=== PATIENT | male | born 1990 | race Caucasian/White ===

== ENCOUNTER 2016-04-20 17:16 | Emergency (ER) | payer BC ==
--- NOTE | 2016-04-20 17:47 | UC ---
Abdominal Pain Male HPI - HPI Summary HPI Summary: The patient comes in today for: 1. Abdominal pain: Onset: Yesterday at 5 AM he started vomiting. He stated that he vomited about 5 times yesterday. And he only vomited once today. His abdominal pain was noticed this AM which he stated was an episodic crampy pain initially felt to be 8/10. He had a bowel movement around 3 PM and his episodic crampy pain dropped down to a 5/10. He is having crampy pain at this time. Palliative/provocative: Bowel movement makes it better. Quality: Cramping. Region: Bilaterally across from the navel. Severity: 5 /10 Time: Comes and goes. Associated symptoms: Fever: None documented. Diarrhea: None at this time. Vomiting: None since this morning. He states that he take Suboxone (by Catrachita Tabor at [facility]). He states that he has been free from heroin for about 2.5 years. * - History of Current Complaint Stated Complaint: ABDOMINAL PAIN Time Seen by Provider: 04/20/16 17:40 Hx Obtained From: Patient - Allergies/Home Medications Allergies/Adverse Reactions: Allergies Allergy/AdvReac Type Severity Reaction Status Date / Time Bee Venom Allergy Swelling Verified 04/20/16 17:41 PMH/Surg Hx/FS Hx/Imm Hx Previously Healthy: No - ADHD. on Suboxone for Heroin use. Endocrine History Of: Denies: Diabetes, Thyroid Disease, Hyperthyroidism, Hypothyroidism, Dyslipidemia Cardiovascular History Of: Denies: Cardiac Disorders, Hypertension, Pacemaker/ICD, Myocardial Infarction , Congestive Heart Failure, Atrial Fibrillation, Deep Vein Thrombosis, Bleeding Disorders Respiratory History Of: Reports: Asthma - He will use albuterol inhaler as needed (exercise induced). Denies: COPD, Bronchitis, Pneumonia, Pulmonary Embolism GI/ History Of: Denies: Gastroesophageal Reflux, Ulcer, Gastrointestinal Bleed, Gall Bladder Disease, Kidney Stones, Diverticulitis, Renal Disease, Urosepsis Neurological History Of: Denies: TIA, CVA, Dementia, Seizures, Migraine - He has not had a history of headaches before. Psychological History Of: Reports: Anxiety, Depression Denies: Bipolar Disorder, Schizophrenia, Post Traumatic Stress Disorder Cancer History Of: Denies: Lung Cancer, Colorectal Cancer, Breast Cancer, Prostate Cancer, Cervical Cancer Other History Of: Negative For: HIV, Hepatitis B, Hepatitis C, Anticoagulant Therapy - Surgical History Surgical History: None - Family History Known Family History: Positive: Cardiac Disease, Respiratory Disease, Other - migraine Negative: Hypertension, Seizure Disorder - Social History Occupation: Student Alcohol Use: None Alcohol Amount: "none in 5 years" Substance Use Type: Marijuana Substance Use Comment - Amount & Last Used: marijuana 1-4 times daily/last heroin 2014- on suboxone Smoking Status (MU): Heavy Every Day Tobacco Smoker Type: Cigarettes Amount Used/How Often: 3/4 PPD Length of Time of Smoking/Using Tobacco: 3 Years Have You Smoked in the Last Year: Yes Household Exposure Type: Cigarettes Review of Systems Constitutional: Negative Skin: Negative Eyes: Negative ENT: Negative Respiratory: Negative Cardiovascular: Negative Gastrointestinal: Abdominal Pain Genitourinary: Negative All Other Systems Reviewed And Are Negative: Yes Physical Exam Triage Information Reviewed: Yes Appearance: Well-Appearing, No Pain Distress, Well-Nourished, Thin, Other: - He was difficult to assess because he would switch the terms of his symptoms i.e. stating that he had abdominal pain at one point, and the denying it stating he only had soreness. Eyes: Positive: Conjunctiva Clear. Negative: Discharge ENT: Positive: Hearing grossly normal. Negative: Pharyngeal erythema, Nasal congestion, Nasal drainage, TM bulging, TM dull, TM red, Tonsillar swelling, Tonsillar exudate Dental: Negative: Gross Decay/Caries @, Dental Fracture @ Neck: Positive: Supple, Nontender, No Lymphadenopathy. Negative: Nuchal Rigidity Respiratory: Positive: Chest non-tender, Lungs clear, No respiratory distress, No accessory muscle use. Negative: Crackles, Wheezing Cardiovascular: Positive: RRR, No Murmur Abdomen Description: Positive: Nontender, No Organomegaly, Soft. Negative: Distended, Guarding Musculoskeletal: Positive: Strength Intact, ROM Intact Neurological: Positive: Alert, Muscle Tone Normal Psychological: Positive: Age Appropriate Behavior, Consolable Skin: Negative: rashes, breakdown Abd Pain Male Course/Dx - Course Course Of Treatment: Patient states that he wants a school note. And medicine for occasional cramping. He states he will not be going to the ER for his abdominal soreness. - Differential Dx/Clinical Impression Provider Diagnoses: GAstroenteritis. abdominal pain. Discharge - Discharge Plan Condition: Stable Disposition: HOME Patient Education Materials: Abdominal Pain (ED) Forms: *School Release Referrals: Remington Forte [Primary Care Provider] - 3 Days (Please see your primary care provider in about witnin a week to see how well you are doing. If you get worse, please be seen sooner.)
[2016-04-20 17:53] VITALS: BP 109/82
== END 2016-04-20 18:35 | disposition home or self-care (01) ==
LOC: UCCORT 17:16
DX: R10.30 Lower abdominal pain, unspecified (principal); K52.9 Noninfective gastroenteritis and colitis, unspecified; F12.90 Cannabis use, unspecified, uncomplicated; F17.210 Nicotine dependence, cigarettes, uncomplicated
CPT/HCPCS: 99212; G0463

== ENCOUNTER 2016-05-22 15:31 | Emergency (ER) | payer BC ==
[2016-05-22 16:02] VITALS: BP 104/67
--- NOTE | 2016-05-22 16:12 | UC ---
Skin Complaint HPI - History of Current Complaint Chief Complaint: UCSkin Time Seen by Provider: 05/22/16 15:39 Stated Complaint: TICK Hx Obtained From: Patient Onset/Duration: Sudden Onset - tick probably on since last night, Lasting Hours - 1 tried to take tick out and dug at it with a knife. Skin Exposure Onset/Duration: Days Ago - 1 Onset Severity: Moderate Current Severity: Moderate Location: Other - right upper abdomen Aggravating: Nothing Alleviating: Nothing Associated Signs & Symptoms: Positive: Negative Related History: Insect Bite/Sting - tick bite. - Allergy/Home Medications Allergies/Adverse Reactions: Allergies Allergy/AdvReac Type Severity Reaction Status Date / Time Bee Venom Allergy Swelling Verified 05/22/16 16:02 Review of Systems All Other Systems Reviewed And Are Negative: Yes PMH/Surg Hx/FS Hx/Imm Hx Endocrine History Of: Denies: Diabetes, Thyroid Disease, Hyperthyroidism, Hypothyroidism, Dyslipidemia Cardiovascular History Of: Denies: Cardiac Disorders, Hypertension, Pacemaker/ICD, Myocardial Infarction , Congestive Heart Failure, Atrial Fibrillation, Deep Vein Thrombosis, Bleeding Disorders Respiratory History Of: Reports: Asthma - He will use albuterol inhaler as needed (exercise induced). Denies: COPD, Bronchitis, Pneumonia, Pulmonary Embolism GI/ History Of: Denies: Gastroesophageal Reflux, Ulcer, Gastrointestinal Bleed, Gall Bladder Disease, Kidney Stones, Diverticulitis, Renal Disease, Urosepsis Neurological History Of: Denies: TIA, CVA, Dementia, Seizures, Migraine - He has not had a history of headaches before. Psychological History Of: Reports: Depression Denies: Anxiety, Bipolar Disorder, Schizophrenia, Post Traumatic Stress Disorder Cancer History Of: Denies: Lung Cancer, Colorectal Cancer, Breast Cancer, Prostate Cancer, Cervical Cancer Other History Of: Negative For: HIV, Hepatitis B, Hepatitis C, Anticoagulant Therapy - Surgical History Surgical History: None Surgery Procedure, Year, and Place: wisdom teeth - Family History Known Family History: Positive: Diabetes, Respiratory Disease, Other - migraine Negative: Cardiac Disease, Hypertension, Seizure Disorder - Social History Occupation: Student Lives: Alone Alcohol Use: Rare Alcohol Amount: "none in 5 years" Substance Use Type: None, Other Substance Use Comment - Amount & Last Used: marijuana 1-4 times daily/last heroin 2014- on suboxone Smoking Status (MU): Heavy Every Day Tobacco Smoker Type: Cigarettes Amount Used/How Often: 3/4 PPD Length of Time of Smoking/Using Tobacco: 3 Years Have You Smoked in the Last Year: Yes Household Exposure Type: Cigarettes - Immunization History Most Recent Influenza Vaccination: none Physical Exam Triage Information Reviewed: Yes Appearance: Well-Appearing, No Pain Distress, Well-Nourished Vital Signs: Initial Vital Signs Temp 99.8 F 05/22/16 15:53 Pulse 87 05/22/16 15:53 Resp 18 05/22/16 15:53 BP 104/67 05/22/16 15:53 Pulse Ox 98 05/22/16 15:53 Vital Signs Reviewed: Yes Eyes: Positive: Conjunctiva Clear Neck exam: Normal Respiratory Exam: Normal Cardiovascular Exam: Normal Abdomen Description: Positive: Nontender, No Organomegaly, Soft Musculoskeletal Exam: Normal Neurological Exam: Normal Psychological: Positive: Other: - Anxious Skin: Positive: Other - tick bite with normal redness right upper abdomen Course/Dx - Differential Diagnoses - Skin Complaint Differential Diagnoses: Cellulitis, Tick Born Illness - Diagnoses Provider Diagnoses: Tick bite abdomen Discharge - Discharge Plan Condition: Stable Disposition: HOME Patient Education Materials: Tick Bite (ED) Additional Instructions: OToms Tick twister
== END 2016-05-22 16:29 | disposition home or self-care (01) ==
LOC: UCCORT 15:31
DX: S30.861A Insect bite (nonvenomous) of abdominal wall, initial encounter (principal); W57.XXXA Bitten or stung by nonvenomous insect and other nonvenomous arthropods, initial encounter; Y93.9 Activity, unspecified; Y92.9 Unspecified place or not applicable; J45.909 Unspecified asthma, uncomplicated; F32.9 Major depressive disorder, single episode, unspecified; F12.90 Cannabis use, unspecified, uncomplicated; F17.210 Nicotine dependence, cigarettes, uncomplicated
CPT/HCPCS: 99211; G0463

== ENCOUNTER 2016-11-30 16:53 | Emergency (ER) | payer BC ==
[2016-11-30 17:56] VITALS: BP 121/76
--- NOTE | 2016-11-30 19:05 | RAD ---
Indication: Constipation. Flat plate of the abdomen demonstrates stool throughout the colon. No dilated loops of bowel are noted. The psoas margins are unremarkable. IMPRESSION: COLON IS FILLED WITH STOOL. NO FREE AIR OR OBSTRUCTION IS NOTED.
--- NOTE | 2016-11-30 19:27 | UC ---
UC General HPI - HPI Summary HPI Summary: EARLY THIS MORNING HAD NAUSEA AND VOMITING. VOMITING RESOLVED. HAS HAD LOWER ABDOMINAL CRAMPING. HAS BEEN 2-3 DAYS SINCE BOWEL MOVEMENT. HISTORY OF CONSTIPATION IN THE PAST. NEEDS NOTE FOR SCHOOL FOR TODAY AND TOMORROW. - History of Current Complaint Chief Complaint: UCAbdominalPain Stated Complaint: ABDOMINAL PAIN/CONSTIPATION Time Seen by Provider: 11/30/16 18:17 Hx Obtained From: Patient Onset/Duration: Gradual Onset, Lasting Days Timing: Intermittent Episodes Lasting: Onset Severity: Moderate Current Severity: Mild Associated Signs & Symptoms: Positive: Abdominal Pain. Negative: Confusion, Cough, Edema, Fever, Headache, Recent Medication Changes, Syncope, SOB - Allergy/Home Medications Allergies/Adverse Reactions: Allergies Allergy/AdvReac Type Severity Reaction Status Date / Time Bee Venom Allergy Swelling Verified 11/30/16 17:45 Home Medications: Home Medications Divalproex Sodium [Depakote] 1,000 mg PO DAILY 11/30/16 [History Confirmed 11/30] PMH/Surg Hx/FS Hx/Imm Hx Previously Healthy: Yes Other History Of: Negative For: HIV, Hepatitis B, Hepatitis C, Anticoagulant Therapy - Surgical History Surgical History: None Surgery Procedure, Year, and Place: wisdom teeth - Family History Known Family History: Positive: Diabetes, Respiratory Disease, Other - migraine Negative: Cardiac Disease, Hypertension, Seizure Disorder - Social History Occupation: Student Lives: Dormitory/Roommates Alcohol Use: None Alcohol Amount: "none in 5 years" Substance Use Type: None Substance Use Comment - Amount & Last Used: last heroin 2013- on suboxone Smoking Status (MU): Light Every Day Tobacco Smoker Type: Cigarettes Amount Used/How Often: 5 CIGS PER DAY Length of Time of Smoking/Using Tobacco: 3 Years Have You Smoked in the Last Year: Yes Household Exposure Type: Cigarettes Cessation Counseling: Patient Advised to Stop - Immunization History Most Recent Influenza Vaccination: none Review of Systems Constitutional: Fever Skin: Negative Eyes: Negative ENT: Negative Respiratory: Negative Cardiovascular: Negative Gastrointestinal: Vomiting, Other - CONSTIPATION Genitourinary: Negative Motor: Negative Neurovascular: Negative Musculoskeletal: Negative Neurological: Negative Psychological: Negative Is Patient Immunocompromised?: No All Other Systems Reviewed And Are Negative: Yes Physical Exam Triage Information Reviewed: Yes Appearance: Well-Appearing, No Pain Distress, Well-Nourished Vital Signs: Initial Vital Signs Temp 98.4 F 11/30/16 17:48 Pulse 90 11/30/16 17:48 Resp 18 11/30/16 17:48 BP 121/76 11/30/16 17:48 Pulse Ox 99 11/30/16 17:48 Vital Signs Reviewed: Yes Eye Exam: Normal ENT Exam: Normal ENT: Positive: Normal ENT inspection, Hearing grossly normal, TMs normal Dental Exam: Normal Neck exam: Normal Neck: Positive: Supple, Nontender, No Lymphadenopathy Respiratory Exam: Normal Respiratory: Positive: Chest non-tender, Lungs clear, Normal breath sounds, No respiratory distress, No accessory muscle use Cardiovascular Exam: Normal Cardiovascular: Positive: RRR, No Murmur, Pulses Normal, Brisk Capillary Refill Abdomen Description: Positive: Nontender, Hepatomegaly, Other: - PRESENTLY NO ABDOMINAL TENDERNESS. Negative: No Organomegaly, Soft, McBurney's Point Tenderness, Splenomegaly Musculoskeletal Exam: Normal Musculoskeletal: Positive: Strength Intact, ROM Intact Neurological Exam: Normal Psychological Exam: Normal Skin Exam: Normal Course/Dx - Differential Dx - Multi-Symptom Differential Diagnoses: Metabolic Abnormality, Urinary Tract Infection Provider Diagnoses: CONSTIPATION Discharge - Discharge Plan Condition: Stable Disposition: HOME Prescriptions: Magnesium CITRATE* [Citrate of Magnesia*] 150 ml PO ONCE #1 btl Patient Education Materials: Constipation (ED), High Fiber Diet (ED) Forms: *School Release Referrals: Remington Forte [Primary Care Provider] -
== END 2016-11-30 19:25 | disposition home or self-care (01) ==
LOC: UCCORT 16:53
DX: K59.00 Constipation, unspecified (principal); F17.210 Nicotine dependence, cigarettes, uncomplicated; Z71.6 Tobacco abuse counseling; Z91.030 Bee allergy status
CPT/HCPCS: 74020; 81003; 99212; G0463

== ENCOUNTER 2017-05-04 14:31 | Emergency (ER) | payer BC ==
[2017-05-04 16:10] VITALS: BP 119/78
--- NOTE | 2017-05-04 17:00 | UC ---
Head Injury HPI - HPI Summary HPI Summary: 26 year old male with head injury. he hit his head yesterday afternoon. He denies blacking out. He says he slipped when outside with the dog. He was unsteady, dizzy after he hit his head and slept all day and night. He missed classes last evening and today. He needs a school note. Has no symptoms at this time. Feels back to normal. No concerns with confusion . No LOC and no seizure. Just needs note for school [ End ] - History Of Current Complaint Chief Complaint: UCHeadInjury Stated Complaint: MIGRAINE Time Seen by Provider: 05/04/17 16:37 Hx Obtained From: Patient Onset/Duration: Sudden Onset Severity Currently: Moderate Severity Initially: Mild Pain Intensity: 0 Pain Scale Used: 0-10 Numeric - 0 Aggravating Factor(s): Nothing Alleviating Factor(s): Nothing - Risk Factors SDH Risk Factor: Negative, Male, Recent Trauma - Allergies/Home Medications Allergies/Adverse Reactions: Allergies Allergy/AdvReac Type Severity Reaction Status Date / Time bee venom protein (honey bee) Allergy Swelling Verified 05/04/17 16:10 PMH/Surg Hx/FS Hx/Imm Hx Previously Healthy: Yes Psychological History: Other - add Other Psychological History: add Other History Of: Negative For: HIV, Hepatitis B, Hepatitis C, Anticoagulant Therapy - Surgical History Surgical History: Yes Surgery Procedure, Year, and Place: wisdom teeth - Family History Known Family History: Positive: Diabetes, Respiratory Disease, Other - migraine Negative: Cardiac Disease, Hypertension, Seizure Disorder - Social History Occupation: 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, 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 Alcohol Use: None Alcohol Amount: "none in 5 years" Substance Use Type: Prescribed Substance Use Comment - Amount & Last Used: last heroin 2013- on suboxone Smoking Status (MU): Light Every Day Tobacco Smoker Type: Cigarettes Amount Used/How Often: 5 CIGS PER DAY Length of Time of Smoking/Using Tobacco: 3 Years Have You Smoked in the Last Year: Yes Household Exposure Type: Cigarettes - Immunization History Most Recent Influenza Vaccination: none Review of Systems Neurological: Headache Is Patient Immunocompromised?: No All Other Systems Reviewed And Are Negative: Yes Physical Exam Triage Information Reviewed: Yes Appearance: Well-Appearing, No Pain Distress, Well-Nourished Vital Signs: Initial Vital Signs Temp 98.6 F 05/04/17 16:05 Pulse 76 05/04/17 16:05 Resp 14 05/04/17 16:05 BP 119/78 05/04/17 16:05 Pulse Ox 99 05/04/17 16:05 Vital Signs Reviewed: Yes Eye Exam: Normal ENT Exam: Normal Dental Exam: Normal Neck exam: Normal Neck: Positive: 1 Respiratory Exam: Normal Cardiovascular Exam: Normal Musculoskeletal Exam: Normal Neurological Exam: Normal Psychological Exam: Normal Skin Exam: Normal Skin: Positive: Other - right front aspect of scalp with small abrasion. no significant swelling. no drainage. no bruising. Head Injury Course/Dx - Course Course Of Treatment: headache resolved. no concussive sx. essentuially here only for school note. no neuro deficits. - Differential Dx/Diagnosis Differential Diagnosis/HQI/PQRI: Contusion Provider Diagnoses: Scalp contusion / headache Discharge - Sign-Out/Discharge Documenting (check all that apply): Discharge - Discharge Plan Condition: Good Disposition: HOME Patient Education Materials: Acute Headache (ED), Scalp Contusion in Adults (ED ) Forms: *School Release Referrals: Remington Forte [Primary Care Provider] - 4 Days - Billing Disposition and Condition Condition: GOOD Disposition: HOME
== END 2017-05-04 16:48 | disposition home or self-care (01) ==
LOC: UCCORT 14:31
DX: R51 Headache (principal); F17.210 Nicotine dependence, cigarettes, uncomplicated; S00.03XA Contusion of scalp, initial encounter; W01.10XA Fall on same level from slipping, tripping and stumbling with subsequent striking against unspecified object, initial encounter; Y93.K1 Activity, walking an animal; Y92.9 Unspecified place or not applicable
CPT/HCPCS: 99211; G0463

== ENCOUNTER 2018-04-25 13:17 | Emergency (ER) | payer BC ==
--- OUTSIDE RECORDS SUMMARY | 2018-04-25 13:33 | XMS REPORT | Continuity of Care Document ---
:1990 External Reference #:[id number] Author Name Catrachita Gan MD Address [address] [place] [address] Care Team Providers Name Role Phone Catrachita Gan MD Care Team Information Shactor Helper Unavailable Payers Date Identification Numbers Payment Provider Subscriber Effective: 2014 Policy Number: [id number] [facility] Commercial Meena Ansari PayID: [id number] [address] [address] [place] [address] Advance Directives Description No Information Available Problems Date Description Provider Status Onset: 10/27/2014 Generalized anxiety disorder Catrachita Gan MD Active Onset: 10/27/2014 Opioid dependence in remission Catrachita Gan MD Active Family History Date Family Member(s) Observation Comments Father Alcoholism Social History Type Date Description Comments Sex Unknown 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 Tobacco Use Start: Unknown Patient is a current smoker, smokes every day Allergies, Adverse Reactions, Alerts Description No Known Drug Allergies Medications Medication Date Status Form Strength Qnty SIG Indications Ordering Provider Sublocade 04/13/ Active Soln 100mg/0.5 .500m inject F11.288 [facility] l subcutaneous Catrachita Syringe MD Yara Peg 3350 12/30/ Active Powder 714gm 1 capful qd F31.9 [facility]2016 Catrachita Livingston MD Docusate Sodium 12/30/ Active Capsules 100mg 30cap 1 by mouth F31.9 Elvia2016 s every day Catrachita Livingston MD Narcan 09/13/ Active Liquid 4mg/0.1ML 2unit as needed F31.9 Elvia2016 s intranasal Catrachita for emergency MD Yara overdose only Vitamin D 04/29/ Active Capsules 2000Unit 1 by mouth 268.9 Elvia, 2014 every day Catrachita Livingston MD Divalproex / Active Tablets 500mg 2 qd F31.9 Unknown Sodium ER 0000 ER 24HR Quetiapine / Active Tablets 100mg take one F31.9 Unknown Fumarate 0000 tablet by mouth at bedtime Puryear / Active Capsules 300mg F31.9 Unknown Carbonate 0000 Sublocade 02/20/ Hx Soln 300mg/1.5 1.500 300 mg sc F11.288 Elvia, 2018 - Prefill ML ml every mos Catrachita 04/13/ Syringe MD Yara 2018 Buprenorphine 10/23/ Hx Film 8-2mg 7unit 1 sl every F11.288 Elvia, Hydrochloride/N 2017 holli: Catrachita aloxone 10/23/ [id number] M,MD Hydrochloride 2017 Suboxone 10/23/ Hx Film 8-2mg 8unit 1 sl every F11.288 Elvia, 2017 holli: Catrachita 03/16/ [id number] M,MD 2018 School Note 05/19/ Hx please excuse F31.9 Elvia, 2017 - from class Catrachita 06/06/ 4/5 d/t MD Yara 2017 medical reasons School Note 04/07/ Hx pt was seen F31.9 Elvia, 2017 - at the [facility] 05/19/ alexis Livingston MD 2018 center today Amphetamine-Dex 04/07/ Hx Tablets 20mg 1 by mouth F90.0 Elvia, troamphetamine 2017 - bid m-fr per Catrachita 06/06/ psyche MD Yara 2017 School Note 03/30/ Hx please excuse Elvia, 2017 - from class Catrachita 04/07/ today d/t MD Yara 2017 medical reasons School Note 12/23/ Hx please excuse Elvia, 2016 - from class Catrachita 03/10/ 11/8 d/t MD Yara 2017 medical reasons Amphetamine-Dex 10/04/ Hx Tablets 10mg per psyche F90.0 Elvia, troamphetamine 2017 - prn use Catrachita 04/07/ MD Yara 2017 Suboxone 09/13/ Hx Film 4-1mg 30uni 1 sl every F31.9 Elvia, 2016 - day Catrachita 10/23/ holli:[id number] MD Yara 2017 Divalproex 09/13/ Hx Tablets 500mg 2 qd F40.11 [place], Sodium ER 2017 - ER 24HR Catrachita 06/06/ Yara, 2017 Escitalopram 04/29/ Hx Tablets 10mg 1 by mouth F41.1 Elvia, Oxalate 2016 - every day Catrachita 07/13/ MD Yara 2017 School Note 04/08/ Hx plz excuse F31.9 Elvia, 2016 - from class Catrachita 04/29/ and MD Yara 04/07 Suboxone 01/21/ Hx Film 8-2mg 30uni 1 sl every F31.9 Elvia, 2015 - holli: Catrachita 09/13/ [id number] MD Yara 2016 School Note 01/21/ Hx pt had F31.9 Elvia, 2015 - appt today Catrachita 04/08/ MD Yara 2016 School Note 01/20/ Hx pt missed Elvia, 2015 - class on 01/13 Catrachita 01/21/ d/t medical MD Yara 2016 reasons Suboxone 12/20/ Hx Film 4-1mg 30uni 1 sl qd F31.9 Elvia, 2015 - ts holli:[id number] Catrachita 01/21/ MD Yara 2016 Clonidine HCL 07/26/ Hx Tablets 0.1mg 30tab 1 by mouth F31.9 Elvia, 2016 - s three a day Catrachita 11/23/ as needed MD Yara 2016 anxiety, tremors Hydroxyzine HCL 07/26/ Hx Tablets 25mg 30tab 1 by mouth F31.9 Elvia, 2016 - s three times a Catrachita 11/23/ day as needed MD Yara 2015 anxiety/sleep Adderall XR 06/28/ Hx Caps ER 10mg 1 po qd F90.0 Elvia, 2015 - 24HR Catrachita 09/13/ MD Yara 2016 School Note 05/19/ Hx plz excuse PT Elvia, 2015 - from class on Catrachita 06/28/ 05/13 for MD Yara 2015 medical reasons Divalproex 02/27/ Hx Tablets 500mg F41.1 Elvia, Sodium ER 2016 - ER 24HR Catrachita 04/29/ MD Yara 2017 Escitalopram 10/27/ Hx Tablets 20mg 90tab 1 by mouth F41.1 Elvia, Oxalate 2014 - s every day Catrachita MD Yara 2016 Suboxone 08/21/ Hx Film 2-0.5mg 30uni 1 sl every F31.9 Elvia, 2014 - holli Catrachita 12/20/ [id number] MD Yara 2015 Rehab Note 08/04/ 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 Catrachita MD Yara 2014 Suboxone 01/06/ Hx Film 8-2mg 10uni 1 sl every 304.03 Elvia, 2013 - day Catrachita MD Yara 2014 School Note 01/06/ Hx pl excuse 304.03 Elvia, 2013 - from class Catrachita MD Yara 2014 School Note 12/16/ Hx pl excuse 304.03 Elvia 2013 - from class Catrachita 12/09, 12/10, MD Yara 12/16 Suboxone 12/16/ Hx Film 4-1mg 32uni 1 sl bid 304.03 Elvia, 2013 - ts Catrachita 01/06/ MD Yara 2013 Lexapro 12/09/ Hx Tablets 10mg 90tab 1 by mouth 300.02 Elvia, 2013 - s every day Catrachita MD Yara 2014 Vistaril 12/09/ Hx Capsules 25mg 30cap 1 qd prn Elvia, 2013 - s Anxiety Catrachita MD Yara 2013 Suboxone 12/09/ Hx Film 8-2mg 15uni 1 sl twice a 304.03 Elvia, 2013 - day Catrachita 12/16/ MD Yara 2013 School Note Hx patient was Elvia 2013 - seen in our [facility] 12/16/ office todayYara MD 2013 PT has been sick for the past 2 wks.from 11/25/13 to 12/09 Immunizations Description No Information Available Vital Signs Date Vital Result Comment 04/13/2018 3:30pm Weight 129.00 lb Heart Rate 72 /min BP Systolic 110 mmHg BP Diastolic 52 mmHg Height 69 inches 5'9" BMI (Body Mass Index) 19.0 kg/m2 03/16/2018 2:32pm Weight 131.00 lb Heart Rate 88 /min BP Systolic 110 mmHg BP Diastolic 56 mmHg Height 69 inches 5'9" BMI (Body Mass Index) 19.3 kg/m2 01/26/2018 3:41pm Weight 140.00 lb Heart Rate 68 /min BP Systolic 116 mmHg BP Diastolic 60 mmHg Height 69 inches 5'9" BMI (Body Mass Index) 20.7 kg/m2 11/24/2017 2:59pm Weight 142.00 lb Heart Rate 76 /min BP Systolic 110 mmHg BP Diastolic 64 mmHg Height 69 inches 5'9" BMI (Body Mass Index) 21.0 kg/m2 10/23/2017 2:48pm Weight 137.00 lb Heart Rate 60 /min BP Systolic 100 mmHg BP Diastolic 60 mmHg Height 69 inches 5'9" BMI (Body Mass Index) 20.2 kg/m2 06/06/2017 3:20pm Weight 135.00 lb Heart Rate 80 /min BP Systolic 108 mmHg BP Diastolic 60 mmHg Height 69 inches 5'9" BMI (Body Mass Index) 19.9 kg/m2 04/07/2017 3:14pm Weight 138.00 lb Heart Rate 96 /min BP Systolic 118 mmHg BP Diastolic 60 mmHg Height 69 inches 5'9" BMI (Body Mass Index) 20.4 kg/m2 03/10/2017 4:04pm Weight 135.00 lb Heart Rate 84 /min BP Systolic 120 mmHg BP Diastolic 70 mmHg Height 69 inches 5'9" BMI (Body Mass Index) 19.9 kg/m2 12/30/2016 3:37pm Weight 136.00 lb Heart Rate 88 /min BP Systolic 110 mmHg BP Diastolic 72 mmHg Height 69 inches 5'9" BMI (Body Mass Index) 20.1 kg/m2 11/11/2016 3:47pm Weight 139.00 lb Heart Rate 76 /min BP Systolic 112 mmHg BP Diastolic 62 mmHg Height 69 inches 5'9" BMI (Body Mass Index) 20.5 kg/m2 10/28/2016 3:04pm Weight 137.00 lb Heart Rate 76 /min BP Systolic 108 mmHg BP Diastolic 66 mmHg Height 69 inches 5'9" BMI (Body Mass Index) 20.2 kg/m2 10/04/2016 3:20pm Weight 141.00 lb Heart Rate 76 /min BP Systolic 120 mmHg BP Diastolic 60 mmHg Height 69 inches 5'9" BMI (Body Mass Index) 20.8 kg/m2 09/13/2016 1:10pm Weight 140.00 lb Heart Rate 76 /min BP Systolic 120 mmHg BP Diastolic 74 mmHg Height 69 inches 5'9" BMI (Body Mass Index) 20.7 kg/m2 07/13/2016 11:19am Weight 128.00 lb Heart Rate 80 /min BP Systolic 98 mmHg BP Diastolic 62 mmHg Height 69 inches 5'9" BMI (Body Mass Index) 18.9 kg/m2 04/29/2016 3:55pm Weight 136.00 lb Heart Rate 88 /min BP Systolic 112 mmHg BP Diastolic 66 mmHg Height 69 inches 5'9" BMI (Body Mass Index) 20.1 kg/m2 03/02/2016 11:56am Weight 131.00 lb Heart Rate 64 /min BP Systolic 110 mmHg BP Diastolic 56 mmHg Height 69 inches 5'9" BMI (Body Mass Index) 19.3 kg/m2 01/22/2016 3:05pm Weight 133.00 lb Heart Rate 64 /min BP Systolic 104 mmHg BP Diastolic 60 mmHg Height 69 inches 5'9" BMI (Body Mass Index) 19.6 kg/m2 11/24/2015 4:30pm Weight 132.00 lb Heart Rate 72 /min BP Systolic 112 mmHg BP Diastolic 68 mmHg Height 69 inches 5'9" BMI (Body Mass Index) 19.5 kg/m2 09/25/2015 2:49pm Weight 135.00 lb Heart Rate 76 /min BP Systolic 110 mmHg BP Diastolic 64 mmHg Height 69 inches 5'9" BMI (Body Mass Index) 19.9 kg/m2 07/27/2015 2:52pm Weight 131.00 lb Heart Rate 80 /min BP Systolic 116 mmHg BP Diastolic 76 mmHg Height 69 inches 5'9" BMI (Body Mass Index) 19.3 kg/m2 06/29/2015 2:30pm Weight 134.25 lb Heart Rate 59 /min BP Systolic 122 mmHg BP Diastolic 68 mmHg Height 69 inches 5'9" BMI (Body Mass Index) 19.8 kg/m2 04/28/2015 12:58pm Body Temperature 97.0 F Weight 134.00 lb Heart Rate 56 /min BP Systolic 110 mmHg BP Diastolic 72 mmHg Height 69 inches 5'9" BMI (Body Mass Index) 19.8 kg/m2 02/27/2015 11:31am Weight 141.00 lb Heart Rate 141 /min BP Systolic 60 mmHg BP Systolic Recheck 112 mmHg BP Diastolic Recheck 66 mmHg Height 69 inches 5'9" BMI (Body Mass Index) 20.8 kg/m2 12/29/2014 11:15am Weight 151.00 lb Heart Rate 52 /min BP Systolic 100 mmHg BP Diastolic 62 mmHg Height 69 inches 5'9" BMI (Body Mass Index) 22.3 kg/m2 10/27/2014 12:10pm Weight 136.00 lb Heart Rate 64 /min BP Systolic 110 mmHg BP Diastolic 68 mmHg Height 69 inches 5'9" BMI (Body Mass Index) 20.1 kg/m2 09/01/2014 10:57am Weight 137.00 lb Heart Rate 56 /min BP Systolic 9870 mmHg Height 69 inches 5'9" BMI (Body Mass Index) 20.2 kg/m2 06/24/2014 12:01pm Weight 136.00 lb Heart Rate 52 /min BP Systolic 98 mmHg BP Diastolic 62 mmHg Height 69 inches 5'9" BMI (Body Mass Index) 20.1 kg/m2 04/29/2014 11:45am Weight 140.00 lb Heart Rate 76 /min BP Systolic 110 mmHg BP Diastolic 68 mmHg Height 69 inches 5'9" BMI (Body Mass Index) 20.7 kg/m2 03/03/2014 11:51am Weight 145.00 lb Heart Rate 60 /min BP Systolic 106 mmHg BP Diastolic 62 mmHg Height 69 inches 5'9" BMI (Body Mass Index) 21.4 kg/m2 01/06/2014 11:42am Weight 140.00 lb Heart Rate 64 /min BP Systolic 96 mmHg BP Diastolic 62 mmHg Height 69 inches 5'9" BMI (Body Mass Index) 20.7 kg/m2 12/16/2013 1:55pm Weight 140.00 lb Heart Rate 64 /min BP Systolic 104 mmHg BP Diastolic 76 mmHg Height 69 inches 5'9" BMI (Body Mass Index) 20.7 kg/m2 12/09/2013 1:52pm Weight 140.00 lb Heart Rate 68 /min BP Systolic 106 mmHg BP Diastolic 68 mmHg Height 69 inches 5'9" BMI (Body Mass Index) 20.7 kg/m2 Results Test Date Facility Test Result H/L Range Note Drugs of Abuse w/o 01/26/2018 [facility] Amphetamines,Uri NEGATIVE <1000 ng /mL THC-FCMG ne Barbiturates,Urine NEGATIVE <200 ng/mL Benzodiazepines, Urine NEGATIVE <200 ng/mL Bupernorphrine/Norbu,Urine POSITIVE Abnormal <10 ng/mL Cocaine Metabolites,Urine NEGATIVE <300 ng/mL Methadone,Urine NEGATIVE <300 ng/mL Opiates,Urine NEGATIVE <300 ng/mL Oxycodone,Urine NEGATIVE <100 ng/mL Phencyclidine,Urine NEGATIVE <25 ng/mL Drugs Of 11/24/2017 [facility] Amphetamines,Urine NEGATIVE <1000 ng/mL Abuse,Urine-FCMG Barbiturates,Urine NEGATIVE <200 ng/mL Benzodiazepines, Urine NEGATIVE <200 ng/mL Bupernorphrine/Norbu,Urine POSITIVE Abnormal <10 ng/mL Cocaine Metabolites,Urine NEGATIVE <300 ng/mL Methadone,Urine NEGATIVE <300 ng/mL Opiates,Urine NEGATIVE <300 ng/mL Oxycodone,Urine NEGATIVE <100 ng/mL Phencyclidine,Urine NEGATIVE <25 ng/mL Cannabinoids,Urine POSITIVE Abnormal <50 ng/mL Drugs Of 10/23/2017 [facility] Amphetamines,Urine NEGATIVE <1000 ng/mL Abuse,Urine-FCMG Barbiturates,Urine NEGATIVE <200 ng/mL Benzodiazepines, Urine NEGATIVE <200 ng/mL Bupernorphrine/Norbu,Urine NEGATIVE <10 ng/mL Cocaine Metabolites,Urine NEGATIVE <300 ng/mL Methadone,Urine NEGATIVE <300 ng/mL Opiates,Urine POSITIVE Abnormal <300 ng/mL Oxycodone,Urine NEGATIVE <100 ng/mL Phencyclidine,Urine NEGATIVE <25 ng/mL Cannabinoids,Urine POSITIVE Abnormal <50 ng/mL Drugs Of 06/06/2017 [facility] Amphetamines,Urine POSITIVE Abnormal <1000 Abuse,Urine-FCMG ng/mL Barbiturates,Urine NEGATIVE <200 ng/mL Benzodiazepines, Urine POSITIVE Abnormal <200 ng/mL Bupernorphrine/Norbu,Urine POSITIVE Abnormal <10 ng/mL Cocaine Metabolites,Urine POSITIVE Abnormal <300 ng/mL Methadone,Urine NEGATIVE <300 ng/mL Opiates,Urine NEGATIVE <300 ng/mL Oxycodone,Urine NEGATIVE <100 ng/mL Phencyclidine,Urine NEGATIVE <25 ng/mL Cannabinoids,Urine POSITIVE Abnormal <50 ng/mL Drugs Of 04/07/2017 [facility] Amphetamines,Urine NEGATIVE <1000 ng/mL Abuse,Urine-FCMG Barbiturates,Urine NEGATIVE <200 ng/mL Benzodiazepines, Urine NEGATIVE <200 ng/mL Bupernorphrine/Norbu,Urine POSITIVE Abnormal <10 ng/mL Cocaine Metabolites,Urine NEGATIVE <300 ng/mL Methadone,Urine NEGATIVE <300 ng/mL Opiates,Urine NEGATIVE <300 ng/mL Oxycodone,Urine NEGATIVE <100 ng/mL Phencyclidine,Urine NEGATIVE <25 ng/mL Cannabinoids,Urine POSITIVE Abnormal <50 ng/mL Drugs Of 11/11/2016 [facility] Amphetamines,Urine NEGATIVE Negative Abuse,Urine-FCMG Barbiturates,Urine NEGATIVE Negative Benzodiazepines, Urine NEGATIVE Negative Bupernorphrine/Norbu,Urine POSITIVE Abnormal Negative Cocaine Metabolites,Urine NEGATIVE Negative Methadone,Urine NEGATIVE Negative Opiates,Urine NEGATIVE Negative Oxycodone,Urine NEGATIVE Negative Phencyclidine,Urine NEGATIVE Negative Cannabinoids,Urine NEGATIVE Negative Drugs of Abuse w/o 09/13/2016 [facility] Amphetamines,Urine Negative <1000 ng/mL THC-FCMG Barbiturates,Urine Negative <200 ng/mL Benzodiazepines, Urine Negative <200 ng/mL Bupernorphrine/Norbu,Urine Positive Abnormal <10 ng/mL Cocaine Metabolites,Urine Negative <300 ng/mL Methadone,Urine Negative <300 ng/mL Opiates,Urine Negative <300 ng/mL Oxycodone,Urine Negative <100 ng/mL Phencyclidine,Urine Negative <25 ng/mL Laboratory test 09/13/2016 [facility] Bupernorphrine/Norbu Positive Abnormal <10 ng/mL finding Drugs Of 07/13/2016 [facility] Amphetamines,Urine Positive Abnormal <1000 Abuse,Urine-FCM ng/mL G Barbiturates,Urine Negative <200 ng/mL Benzodiazepines, Urine Negative <200 ng/mL Bupernorphrine/Norbu,Urine Positive Abnormal <10 ng/mL Cocaine Metabolites,Urine Negative <300 ng/mL Methadone,Urine Negative <300 ng/mL Opiates,Urine Negative <300 ng/mL Oxycodone,Urine Negative <100 ng/mL Phencyclidine,Urine Negative <25 ng/mL Cannabinoids,Urine Positive Abnormal <50 ng/mL CBC With Auto Diff 03/02/2016 [facility] WBC 5.1 K/uL 4.1-11.0 1 RBC 4.85 M/uL 4.60-6.10 Hemoglobin 14.6 gm/dL 13.5-18.0 Hematocrit 43.6 % 41.0-53.0 MCV 89.9 fL 80.0-97.0 MCH 30.1 pg 27.0-32.0 MCHC 33.4 g/dL 32.0-36.0 RDW 13.0 % 11.5-14.5 PLT Count 131 K/ul Low 140-400 Neutrophil 43.4 % 35.0-75.0 Lymphocyte 39.7 % 16.0-52.0 Monocyte 11.6 % High 2.0-10.0 Eosinophil 4.3 % 0.0-5.0 Basophil 1.0 % 0.0-4.0 Abs Neutrophils 2.2 K/uL 2.1-8.0 Abs Lymphocytes 2.0 K/uL 0.8-5.5 Abs Monocytes 0.6 K/uL 0.1-1.0 Abs Eosinophils 0.2 K/uL 0.0-0.5 Abs Basophils 0.0 K/uL 0.0-0.3 Drugs Of 01/22/2016 [facility] Amphetamines,Urine Negative <1000 ng/mL Abuse,Urine-FCMG Barbiturates,Urine Negative <200 ng/mL Benzodiazepines, Urine Negative <200 ng/mL Bupernorphrine/Norbu,Urine Positive <10 ng/mL Cocaine Metabolites,Urine Negative <300 ng/mL Methadone,Urine Negative <300 ng/mL Opiates,Urine Negative <300 ng/mL Oxycodone,Urine Negative <100 ng/mL Phencyclidine,Urine Negative <25 ng/mL Cannabinoids,Urine Positive <50 ng/mL CBC With Auto Diff 01/22/2016 [facility] WBC 4.4 K/uL 4.1-11.0 RBC 4.95 M/uL 4.60-6.10 Hemoglobin 15.1 gm/dL 13.5-18.0 Hematocrit 45.1 % 41.0-53.0 MCV 91.2 fL 80.0-97.0 MCH 30.5 pg 27.0-32.0 MCHC 33.4 g/dL 32.0-36.0 RDW 12.7 % 11.5-14.5 PLT Count 169 K/ul 140-400 Neutrophil 39.4 % 35.0-75.0 Lymphocyte 32.5 % 16.0-52.0 Monocyte 10.2 % High 2.0-10.0 Eosinophil 16.8 % High 0.0-5.0 Basophil 1.1 % 0.0-4.0 Abs Neutrophils 1.7 K/uL Low 2.1-8.0 Abs Lymphocytes 1.4 K/uL 0.8-5.5 Abs Monocytes 0.4 K/uL 0.1-1.0 Abs Eosinophils 0.7 K/uL High 0.0-0.5 Abs Basophils 0.1 K/uL 0.0-0.3 Comprehensive Metabolic (CMP) 01/22/2016 [facility] Sodium 143 mmol/L High 134-142 Potassium 5.4 Result verif <SEE NOTE> mmol/L High 3.5-5.2 2 Chloride 104 mmol/L 97-109 Carbon Dioxide 35 mmol/L High 24-34 Glucose 83 mg/dL 70-105 BUN 15 mg/dL 6-26 Creatinine 0.8 mg/dL 0.5-1.4 Calcium 9.6 mg/dL 8.5-10.2 Total Protein 7.2 g/dL 6.0-8.0 Albumin 4.7 g/dL 3.6-4.9 Globulin 2.5 g/dL 2.0-3.5 A/G Ratio 1.9 Ratio 1.0-2.2 Total Bilirubin 0.5 mg/dL 0.1-1.3 Alkaline Phosphatase 59 U/L 24-140 Alt 9 U/L 3-42 Ast 14 U/L 8-42 Anion Gap 9 mmol/L 6-14 Jocelyn Egfr >60 >60 3 Non Jocelyn Egfr >60 >60 4 Laboratory test finding 01/22/2016 [facility] TSH 0.92 uIU/mL 0.35-4.94 Free T4 0.92 ng/dL 0.70-1.48 Drugs Of 11/24/2015 [facility] Amphetamines,Urine Negative <1000 ng/mL Abuse,Urine-FCMG Barbiturates,Urine Negative <200 ng/mL Benzodiazepines, Urine Negative <200 ng/mL Bupernorphrine/Norbu,Urine Positive <10 ng/mL Cocaine Metabolites,Urine Negative <300 ng/mL Methadone,Urine Negative <300 ng/mL Opiates,Urine Negative <300 ng/mL Oxycodone,Urine Negative <100 ng/mL Phencyclidine,Urine Negative <25 ng/mL Cannabinoids,Urine Positive <50 ng/mL Drugs Of 06/29/2015 [facility] Amphetamines,Urine Negative <1000 ng/mL Abuse,Urine-FCMG Barbiturates,Urine Negative <200 ng/mL Benzodiazepines, Urine Negative <200 ng/mL Bupernorphrine/Norbu,Urine Positive <10 ng/mL Cocaine Metabolites,Urine Negative <300 ng/mL Methadone,Urine Negative <300 ng/mL Opiates,Urine Negative <300 ng/mL Oxycodone,Urine Negative <100 ng/mL Phencyclidine,Urine Negative <25 ng/mL Cannabinoids,Urine Positive <50 ng/mL Buprenorphine & Metabolite -Urine 06/24/2014 [facility] Buprenorphine Ur <2 ng /mL 5 Norbuprenorphine Ur 83 ng/mL Buprenorphine Glucu 142 6 Norbupr Glucuronide 126 7 Naloxone,Urine <100 ng/mL 8 Laboratory test 06/24/2014 [facility] Cannabinoid Ur Conf >500 ng/mL 9 finding Drugs Of Abuse 06/24/2014 [facility] Amphetamines,Urine NEGATIVE (Neg) Urine -RL [id number] Barbiturates,Urine NEGATIVE [id number] (Neg) Benzodiazepine,Urine NEGATIVE [id number] (Neg) Cannabinoids,Urine POSITIVE [id number] (Neg) 10 Cocaine,Urine NEGATIVE [id number] (Neg) Opiates,Urine NEGATIVE [id number] (Neg) Phencyclidine,Urine NEGATIVE [id number] (Neg) Please Note: THESE ARE SCREEN <SEE NOTE> 11 Buprenorphine & Metabolite 12/16/2013 [facility] Buprenorphine Ur 5 ng/mL 12, 13 -Urine Norbuprenorphine Ur 244 ng/mL Buprenorphine Glucu >1000 14 Norbupr Glucuronide 322 15 Naloxone,Urine <100 ng/mL 16 Drugs Of Abuse 12/16/2013 [facility] Amphetamines,Urine NEGATIVE [id number] (Neg) Urine -RL Barbiturates,Urine NEGATIVE [id number] (Neg) Benzodiazepine,Urine NEGATIVE [id number] (Neg) Cannabinoids,Urine POSITIVE [id number] (Neg) 17 Cocaine,Urine NEGATIVE [id number] (Neg) Opiates,Urine NEGATIVE [id number] (Neg) Phencyclidine,Urine NEGATIVE [id number] (Neg) Please Note: THESE ARE SCREEN <SEE NOTE> 18 Hepatitis Prof Acute-RL 12/16/2013 [facility] Hepatitis B S Ag @ NEGATIVE ( Neg) Hep. B Core Igm @ NEGATIVE (Neg) Hepatitis A AB Igm @ NEGATIVE (Neg) Hepatitis C AB @ NEGATIVE (Neg) 19 Laboratory test 12/16/2013 [facility] Cannabinoid Ur Conf 26 ng/mL 20 finding HIV Combo By Eia 12/16/2013 [facility] HIV Combo Eia Negative Negative Hepatic Panel (LFT) 12/16/2013 [facility] Total Protein 7.9 g/dL 6.0-8.0 Albumin 5.1 g/dL High 3.6-4.9 Total Bilirubin 0.5 mg/dL 0.1-1.3 Direct Bilirubin 0.1 mg/dL 0.0-0.4 Alkaline Phosphatase 78 U/L 24-140 Alt 12 U/L 3-42 Ast 16 U/L 8-42 Buprenorphine & Metabolite 12/09/2013 [facility] Buprenorphine Ur <2 ng/mL 21, 22 -Urine Norbuprenorphine Ur <2 ng/mL Buprenorphine Glucu <5 23 Norbupr Glucuronide <5 24 Naloxone,Urine <100 ng/mL 25 Drugs Of Abuse 12/09/2013 [facility] Amphetamines,Urine NEGATIVE [id number] (Neg) Urine -RL Barbiturates,Urine NEGATIVE [id number] (Neg) Benzodiazepine,Urine NEGATIVE [id number] (Neg) Cannabinoids,Urine POSITIVE [id number] (Neg) 26 Cocaine,Urine NEGATIVE [id number] (Neg) Opiates,Urine POSITIVE [id number] (Neg) 27 Phencyclidine,Urine NEGATIVE [id number] (Neg) Please Note: THESE ARE SCREEN <SEE NOTE> 28 Opiates CFRM Urine -RL 12/09/2013 [facility] Opiates Confirm Ur Positive 29 Opiates Urine 6 Am <20 ng/mL Opiates Codeine <20 ng/mL Opiates Morphine 559 ng/mL 30 Opiates Hydrocodone <20 ng/mL Opiates Hydromorpho <20 ng/mL Opiates Oxycodone <20 ng/mL Opiates Oxymorphone <20 ng/mL Opiates Noroxycodone <20 31 Opiates Noroxymorpho <20 32 Opiates Norhydrocodo <20 33 Laboratory test finding 12/09/2013 [facility] Cannabinoid Ur Conf 46 ng/mL 34 1 This sample is drawn by:NB. 2 5.4 Result verified by repeat analysis. No visible hemolysis. 3 Concerning GFR Guidelines for Americans: Normal function or mild renal disease, if clinically at risk: >/=60 mL/min Moderately decreased: 30-59 Severely decreased: 15-29 Renal failure: <15 4 Concerning GFR Guidelines: Normal function or mild renal disease, if clinically at risk: >/=60 mL/min Moderately decreased: 30-59 Severely decreased: 15-29 Renal failure: <15 Glomerular Filtration Rate (GFR) is estimated based on the MDRD equation, which assumes a steady state for creatinine as recommended by the National Kidney Disease Education Program in conjunction with the National Institutes of Health and the National Kidney Foundation. Clinical conditions in which it may be necessary to measure GFR by using clearance methods include extremes of age and body size, severe malnutrition or obesity, diseases of skeletal muscle, paraplegia or quadriplegia, vegetarian diet, rapidly changing kidney function, and calculation of the dose of potentially toxic drugs that are excreted by the kidneys. 5 INTERPRETIVE INFORMATION: Buprenorphine and Metabolites - Confirmation/Quantitation - Urine Methodology: Quantitative High Performance Liquid Chromatography-Tandem Mass Spectrometry Drugs covered: Buprenorphine, norbuprenorphine, buprenorphine glucuronide, norbuprenorphine glucuronide, and naloxone. Positive cutoff: Buprenorphine 2 ng/mL Norbuprenorphine 2 ng/mL Buprenorphine glucuronide 5 ng/mL Norbuprenorphine glucuronide 5 ng/mL Naloxone 100 ng/mL For medical purposes only; not valid for forensic use. The presence of metabolite(s) without parent drug is common and may indicate use of parent drug during the prior week. The absence of expected drug(s) and/or drug metabolite(s) may indicate non-compliance, inappropriate timing of specimen collection relative to drug administration, poor drug absorption, diluted/adulterated urine, or limitations of testing. The concentration value must be greater than or equal to the cutoff to be reported as positive. Interpretive questions should be directed to the laboratory. Test developed and characteristics determined by [facility]. See Compliance Statement B: [facility].Venaxis/CS 6 Unit: ng/mL Consistent with use of a buprenorphine-containing drug. Glucuronide concentrations are semi-quantitative. 7 Unit: ng/mL 8 Performed by [facility], [address] [place] [id number] [email or web address], Moe Jones MD, Lab. Director Unless otherwise specified, testing performed by [facility] [address] [place] [id number] INTERPRETIVE INFORMATION: Drug Confirmation, Cannabinoids, Urine 1. Drugs covered: [id number]. 2. Methodology: Liquid Chromatography-Tandem Mass Spectrometry. 3. Positive cutoff: 5 ng/mL. 4. For medical purposes only; not valid for forensic use. 5. The drug analyte detected in this assay, 9-carboxy THC, is a metabolite of [id number]-8-mfmwbwvlschkjcxaciml (THC). Detection of 9-carboxy THC suggests use of, or exposure to, a product containing THC. This test cannot distinguish between prescribed or non-prescribed forms of THC, nor can it distinguish between active or passive use. The 9-carboxy THC metabolite can be detected in urine for several weeks. Normalization of results to creatinine concentration can help document elimination or suggest recent use, when specimens are collected at least one week apart. Performed by [facility], [address] [place] [id number] [email or web address], Moe Jones MD, Lab. Director Unless otherwise specified, testing performed by [facility] [address] [place] [id number] 10 SPECIMEN HAS BEEN SENT FOR CONFIRMATION. 11 THESE ARE SCREENING IMMUNOASSAY TESTS THAT ARE REPORTED POSITIVE WHEN THE RESULTS EXCEED THE THRESHOLD (CUTOFF) INDICATED. A LIST OF POTENTIAL INTERFERENCES FOR EACH METHOD CAN BE MADE AVAILABLE UPON REQUEST. A CONFIRMATORY ANALYSIS IS ORDERED ON ALL DRUGS SCREENING POSITIVE BY THIS METHOD. PERFORMED AT [address] [place] [address] Unless otherwise specified, testing performed by [facility] [address] [place] [id number] 12 This sample is drawn by:. 13 INTERPRETIVE INFORMATION: Buprenorphine and Metabolites - Confirmation/Quantitation - Urine Methodology: Quantitative High Performance Liquid Chromatography-Tandem Mass Spectrometry Drugs covered: Buprenorphine, norbuprenorphine, buprenorphine glucuronide, norbuprenorphine glucuronide, and naloxone. Positive cutoff: Buprenorphine 2 ng/mL Norbuprenorphine 2 ng/mL Buprenorphine glucuronide 5 ng/mL Norbuprenorphine glucuronide 5 ng/mL Naloxone 100 ng/mL For medical purposes only; not valid for forensic use. The presence of metabolite(s) without parent drug is common and may indicate use of parent drug during the prior week. The absence of expected drug(s) and/or drug metabolite(s) may indicate non-compliance, inappropriate timing of specimen collection relative to drug administration, poor drug absorption, diluted/adulterated urine, or limitations of testing. The concentration value must be greater than or equal to the cutoff to be reported as positive. Interpretive questions should be directed to the laboratory. Test developed and characteristics determined by [facility]. See Compliance Statement B: [employer]/CS 14 Unit: ng/mL Consistent with use of a buprenorphine-containing drug. Glucuronide concentrations are semi-quantitative. 15 Unit: ng/mL 16 Performed by [facility], [address] [place] [id number] [email or web address], Moe Jones MD, Lab. Director Unless otherwise specified, testing performed by [facility] [address] [place] [address] 17 SPECIMEN HAS BEEN SENT FOR CONFIRMATION. 18 THESE ARE SCREENING IMMUNOASSAY TESTS THAT ARE REPORTED POSITIVE WHEN THE RESULTS EXCEED THE THRESHOLD (CUTOFF) INDICATED. A LIST OF POTENTIAL INTERFERENCES FOR EACH METHOD CAN BE MADE AVAILABLE UPON REQUEST. A CONFIRMATORY ANALYSIS IS ORDERED ON ALL DRUGS SCREENING POSITIVE BY THIS METHOD. PERFORMED AT [address] [place] [address] Unless otherwise specified, testing performed [place] [address] 19 NOT INFECTED WITH HCV, UNLESS RECENT INFECTION IS SUSPECTED OR OTHER EVIDENCE EXISTS TO INDICATE HCV INFECTION. Unless otherwise specified, testing performed by [facility] [address] [place] [address] 20 INTERPRETIVE INFORMATION: Drug Confirmation, Cannabinoids, Urine 1. Drugs covered: 7-dilrwip-DAV. 2. Methodology: Liquid Chromatography-Tandem Mass Spectrometry. 3. Positive cutoff: 5 ng/mL. 4. For medical purposes only; not valid for forensic use. 5. The drug analyte detected in this assay, 9-carboxy THC, is a metabolite of vkcsa-0-tolngletuwsmudmsrihs (THC). Detection of 9-carboxy THC suggests use of, or exposure to, a product containing THC. This test cannot distinguish between prescribed or non-prescribed forms of THC, nor can it distinguish between active or passive use. The 9-carboxy THC metabolite can be detected in urine for several weeks. Normalization of results to creatinine concentration can help document elimination or suggest recent use, when specimens are collected at least one week apart. Performed by [facility], [address] [place] [address] [email or web address], Moe Jones MD, Lab. Director Unless otherwise specified, testing performed by [facility] [place], [place] [address] 21 Fastin hours 22 INTERPRETIVE INFORMATION: Buprenorphine and Metabolites - Confirmation/Quantitation - Urine Methodology: Quantitative High Performance Liquid Chromatography-Tandem Mass Spectrometry Drugs covered: Buprenorphine, norbuprenorphine, buprenorphine glucuronide, norbuprenorphine glucuronide, and naloxone. Positive cutoff: Buprenorphine 2 ng/mL Norbuprenorphine 2 ng/mL Buprenorphine glucuronide 5 ng/mL Norbuprenorphine glucuronide 5 ng/mL Naloxone 100 ng/mL For medical purposes only; not valid for forensic use. The presence of metabolite(s) without parent drug is common and may indicate use of parent drug during the prior week. The absence of expected drug(s) and/or drug metabolite(s) may indicate non-compliance, inappropriate timing of specimen collection relative to drug administration, poor drug absorption, diluted/adulterated urine, or limitations of testing. The concentration value must be greater than or equal to the cutoff to be reported as positive. Interpretive questions should be directed to the laboratory. Test developed and characteristics determined by [facility]. See Compliance Statement B: [employer]/CS 23 Unit: ng/mL 24 Unit: ng/mL 25 Performed by [facility], [address] [place] [id number] [email or web address], Moe Jones MD, Lab. Director Unless otherwise specified, testing performed by [facility] [address] [place] [address] 26 SPECIMEN HAS BEEN SENT FOR CONFIRMATION. 27 SPECIMEN HAS BEEN SENT FOR CONFIRMATION. 28 THESE ARE SCREENING IMMUNOASSAY TESTS THAT ARE REPORTED POSITIVE WHEN THE RESULTS EXCEED THE THRESHOLD (CUTOFF) INDICATED. A LIST OF POTENTIAL INTERFERENCES FOR EACH METHOD CAN BE MADE AVAILABLE UPON REQUEST. A CONFIRMATORY ANALYSIS IS ORDERED ON ALL DRUGS SCREENING POSITIVE BY THIS METHOD. PERFORMED AT [address] [place] [address] Unless otherwise specified, testing performed [place] [address] 29 Positive INTERPRETIVE INFORMATION: Opiates - Confirmation/Quantitation - Urine Methodology: Quantitative Liquid Chromatography-Tandem Mass Spectrometry Drugs covered: codeine, morphine, 6-acetylmorphine, hydrocodone, norhydrocodone, hydromorphone, oxycodone, noroxycodone, oxymorphone and noroxymorphone. All drugs covered are the non-glucuronidated (free) form. Positive cutoff: 20 ng/mL For medical purposes only; not valid for forensic use. The absence of expected drug(s) and/or drug metabolite(s) may indicate non-compliance, inappropriate timing of specimen collection relative to drug administration, poor drug absorption, diluted/adulterated urine, or limitations of testing. The concentration value must be greater than or equal to the cutoff to be reported as positive. A very small amount of an unexpected drug analyte in the presence of a large amount of an expected drug analyte may reflect pharmaceutical impurity. Interpretive questions should be directed to the laboratory. 30 Consistent with use of a drug containing morphine. High concentrations may reflect metabolism of heroin. 31 Unit: ng/mL 32 Unit: ng/mL 33 Unit: ng/mL Performed by [facility], [address] [facility] [id number] [email or web address], Moe Jones MD, Lab. Director Unless otherwise specified, testing performed by [facility] [place] [address] 34 INTERPRETIVE INFORMATION: Drug Confirmation, Cannabinoids, Urine 1. Drugs covered: 7-dihdpfa-EWR. 2. Methodology: Liquid Chromatography-Tandem Mass Spectrometry. 3. Positive cutoff: 5 ng/mL. 4. For medical purposes only; not valid for forensic use. 5. The drug analyte detected in this assay, 9-carboxy THC, is a metabolite of rcdbi-7-qemomvaunlgbuitezelb (THC). Detection of 9-carboxy THC suggests use of, or exposure to, a product containing THC. This test cannot distinguish between prescribed or non-prescribed forms of THC, nor can it distinguish between active or passive use. The 9-carboxy THC metabolite can be detected in urine for several weeks. Normalization of results to creatinine concentration can help document elimination or suggest recent use, when specimens are collected at least one week apart. Performed by [facility], [address] [facility] [place] [address] [email or web address], Moe Jones MD, Lab. Director Unless otherwise specified, testing performed by [facility] [place] [address] Procedures Description No Information Available Encounters Type Date Location Provider Dx Diagnosis Office Visit 03/16/2018 Catrachita Elizabeth F11.288 Opioid dependence 2:15p MD Yara with other opioid-induced disorder F31.9 Bipolar disorder, unspecified Z68.1 Body mass index (BMI) 19.9 or less, adult Office Visit 01/26/2018 3:30p Catrachita Elizabeth F11.288 Opioid dependence with MD Yara other opioid-induced disorder F31.9 Bipolar disorder, unspecified Office Visit 11/24/2017 2:45p Catrachita Elizabeth F11.288 Opioid dependence with MD Yara other opioid-induced disorder F90.0 Attn-defct hyperactivity disorder, predom inattentive type F31.9 Bipolar disorder, unspecified F41.1 Generalized anxiety disorder Office Visit 10/23/2017 2:30p Catrachita Elizabeth F31.9 Bipolar disorder, MD Yara unspecified F90.0 Attn-defct hyperactivity disorder, predom inattentive type F11.288 Opioid dependence with other opioid-induced disorder Office Visit 06/06/2017 3:30p Catrachita Elizabeth F11.21 Opioid dependence, in M,MD remission F41.1 Generalized anxiety disorder F90.0 Attn-defct hyperactivity disorder, predom inattentive type R10.11 RIGHT upper quadrant pain F31.9 Bipolar disorder, unspecified Z68.1 Body mass index (BMI) 19.9 or less, adult Office Visit 04/07/2017 3:00p Ernestine Gan Catrachita F11.21 Opioid dependence, in M,MD remission F41.1 Generalized anxiety disorder F90.0 Attn-defct hyperactivity disorder, predom inattentive type Office Visit 03/10/2017 3:45p Ernestine Gan Catrachita F11.21 Opioid dependence, in M,MD remission Office Visit 12/30/2016 3:00p Ernestine Gan Catrachita F11.21 Opioid dependence, in M,MD remission F41.1 Generalized anxiety disorder F90.0 Attn-defct hyperactivity disorder, predom inattentive type Office Visit 11/11/2016 3:30p Ernestine Gan Catrachita F11.21 Opioid dependence, in M,MD remission F41.1 Generalized anxiety disorder Office Visit 10/28/2016 3:00p Catrachita Elizabeth F11.21 Opioid dependence, in M,MD remission F41.1 Generalized anxiety disorder F90.0 Attn-defct hyperactivity disorder, predom inattentive type Office Visit 10/04/2016 2:45p Ernestine Macachantelle, Catrachita F11.21 Opioid dependence, in M,MD remission F41.1 Generalized anxiety disorder F90.0 Attn-defct hyperactivity disorder, predom inattentive type Office Visit 09/13/2016 1:00p Ernestine Macachantelle, Catrachita F11.21 Opioid dependence, in M,MD remission F41.1 Generalized anxiety disorder F90.0 Attn-defct hyperactivity disorder, predom inattentive type F40.11 Social phobia, generalized Office Visit 07/13/2016 11:00a Ernestine Macachantelle, Catrachita F11.21 Opioid dependence, in M,MD remission F41.1 Generalized anxiety disorder Office Visit 04/29/2016 3:45p Ernestine Macachantelle, Catrachita F11.21 Opioid dependence, in M,MD remission F41.1 Generalized anxiety disorder Office Visit 03/02/2016 11:45a Ernestine Macachantelle, Catrachita F11.21 Opioid dependence, in M,MD remission F41.1 Generalized anxiety disorder D72.1 Eosinophilia Office Visit 01/22/2016 2:45p Ernestine Macachantelle, Catrachita F11.21 Opioid dependence, in M,MD remission F43.0 Acute stress reaction F41.1 Generalized anxiety disorder R53.83 Other fatigue Office Visit 11/24/2015 4:00p Ernestine Macachantelle, Catrachita F11.21 Opioid dependence, in M,MD remission Office Visit 09/25/2015 2:30p Ernestine Macachantelle, Catrachita F11.21 Opioid dependence, in M,MD remission F41.1 Generalized anxiety disorder F90.0 Attn-defct hyperactivity disorder, predom inattentive type S60.051A Contusion of RIGHT little finger w/o damage to nail, init Office Visit 07/27/2015 2:45p Ernestine Macachantelle, Catrachita F11.21 Opioid dependence, in M,MD remission F41.1 Generalized anxiety disorder F90.0 Attn-defct hyperactivity disorder, predom inattentive type Office Visit 06/29/2015 2:00p Ernestine Macachantelle, Catrachita F11.21 Opioid dependence, in M,MD remission R11.2 Nausea with vomiting, unspecified F41.1 Generalized anxiety disorder F90.0 Attn-defct hyperactivity disorder, predom inattentive type Office Visit 04/28/2015 1:00p Catrachita Elizabeth F11.21 Opioid dependence, in M,MD remission F41.1 Generalized anxiety disorder Office Visit 02/27/2015 11:00a Catrachita Elizabeth F11.21 Opioid dependence, in M,MD remission F41.1 Generalized anxiety disorder Office Visit 12/29/2014 11:00a Catrachita Elizabeth F11.21 Opioid dependence, in M,MD remission F41.1 Generalized anxiety disorder Office Visit 10/27/2014 11:45a Catrachita Elizabeth 304.03 Drug Dependence M, Opioid Type Remission 300.02 Anxiety Disorder Generalized Office Visit 09/01/2014 10:45a Catrachita Elizabeth 304.03 Drug Dependence M, Opioid Type Remission 314.00 Attention Deficit Disorder W/O Mention Of Hyperactivity 300.02 Anxiety Disorder Generalized Office Visit 06/24/2014 11:30a Catrachita Elizabeth 304.03 Drug Dependence M, Opioid Type Remission 314.00 Attention Deficit Disorder W/O Mention Of Hyperactivity Office Visit 04/29/2014 11:45a Catrachita Elizabeth 304.03 Drug Dependence M, Opioid Type Remission 314.00 Attention Deficit Disorder W/O Mention Of Hyperactivity 300.02 Anxiety Disorder Generalized 268.9 Vitamin D Deficiency Unspec Office Visit 03/03/2014 11:45a Catrachita Elizabeth 304.03 Drug Dependence M, Opioid Type Remission 300.02 Anxiety Disorder Generalized 314.00 Attention Deficit Disorder W/O Mention Of Hyperactivity Office Visit 01/06/2014 11:30a Catrachita Elizabeth 304.03 Drug Dependence Yara, Opioid Type Remission 300.02 Anxiety Disorder Generalized Office Visit 12/16/2013 2:00p Catrachita Elizabeth 304.03 Drug Dependence M, Opioid Type Remission 300.02 Anxiety Disorder Generalized V69.2 Sexual Behavior High Risk Office Visit 12/09/2013 1:45p Catrachita Elizabeth 304.01 Drug Dependence MD Yara Opioid Type Continuous Plan of Treatment Future Appointment(s):05/11/2018 1:45 pm - Catrachita Gan MD at [id number] - Catrachita Gan MDF11.288 Opioid dependence with other opioid- induced disorderNew Medication:Sublocade 100 mg/0.5ML - inject subcutaneousFollow up:4 weeks-uiwyefoS85.9 Bipolar disorder, soqsnasxebfN12.1 Body mass index (BMI) 19.9 or less, adult
[2018-04-25 13:43] VITALS: BP 119/75
[2018-04-25] MEDS ORDERED: Ondansetron ODT TAB* 4 MG PO ONE (13:52)
--- NOTE | 2018-04-25 13:56 | UC ---
Nausea/Vomiting/Diarrhea HPI - HPI Summary HPI Summary: 27-year-old male comes in with a chief complaint of nausea and vomiting and body aches. Patient was not feeling well yesterday after swimming a 500 m race. Been having chills and shakes ever since then. When he woke up this morning he started vomiting. His body aches are mostly upper chest and neck. Every time he tries to drink something he throws up. No measured fevers. Some mild abdominal discomfort. No diarrhea. - History of Current Complaint Chief Complaint: UCGI Stated Complaint: BODY ACHES,VOMITING,NAUSEA Time Seen by Provider: 04/25/18 13:39 Pain Intensity: 0 - Allergies/Home Medications Allergies/Adverse Reactions: Allergies Allergy/AdvReac Type Severity Reaction Status Date / Time bee venom protein (honey bee) Allergy Swelling Verified 04/25/18 13:37 Home Medications: Home Medications Buprenorphine [Sublocade] 300 mg SUBCUT MONTHLY 04/25/18 [History Confirmed ] PMH/Surg Hx/FS Hx/Imm Hx Previously Healthy: Yes Other History Of: Negative For: HIV, Hepatitis B, Hepatitis C, Anticoagulant Therapy - Surgical History Surgical History: Yes Surgery Procedure, Year, and Place: wisdom teeth - Family History Known Family History: Positive: Diabetes, Respiratory Disease, Other - migraine Negative: Cardiac Disease, Hypertension, Seizure Disorder - Social History Alcohol Use: None Alcohol Amount: "none in 5 years" Substance Use Type: Marijuana Substance Use Comment - Amount & Last Used: several times a week Smoking Status (MU): Former Smoker Type: Cigarettes Amount Used/How Often: 5 CIGS PER DAY Length of Time of Smoking/Using Tobacco: 1/2 PPD x 6 Years Have You Smoked in the Last Year: Yes When Did the Patient Quit Smoking/Using Tobacco: 12/2017 Household Exposure Type: Cigarettes - Immunization History Most Recent Influenza Vaccination: none Review of Systems All Other Systems Reviewed And Are Negative: Yes Constitutional: Positive: Chills Skin: Positive: Negative Eyes: Positive: Negative ENT: Positive: Negative Respiratory: Positive: Negative Cardiovascular: Positive: Negative Gastrointestinal: Positive: Abdominal Pain, Vomiting, Nausea Genitourinary: Positive: Negative Motor: Positive: Negative Neurovascular: Positive: Negative Musculoskeletal: Positive: Myalgia Neurological: Positive: Negative Psychological: Positive: Negative Is Patient Immunocompromised?: No Physical Exam Triage Information Reviewed: Yes Appearance: No Pain Distress, Well-Nourished, Ill-Appearing - MILD Vital Signs: Initial Vital Signs Temp 98.7 F 04/25/18 13:33 Pulse 90 04/25/18 13:33 Resp 16 04/25/18 13:33 BP 119/75 04/25/18 13:33 Pulse Ox 100 04/25/18 13:33 Vital Signs Reviewed: Yes Eye Exam: Normal ENT: Positive: Pharynx normal, TMs normal Neck exam: Normal Neck: Positive: Supple Respiratory: Positive: Lungs clear, Normal breath sounds, No respiratory distress Cardiovascular: Positive: RRR Abdomen Description: Positive: Nontender, Soft Bowel Sounds: Positive: Present Musculoskeletal Exam: Normal Musculoskeletal: Positive: Strength Intact, ROM Intact Neurological Exam: Normal Neurological: Positive: Alert, Muscle Tone Normal Psychological Exam: Normal Psychological: Positive: Age Appropriate Behavior Skin Exam: Normal Naus/Vom/Diarrhea Course/Dx - Course Course Of Treatment: IMPROVED IN CLINIC AFTER PO ZOFRAN - Differential Dx/Diagnosis Provider Diagnosis: Nausea & vomiting, Dehydration Condition At Discharge: Stable Discharge - Sign-Out/Discharge Documenting (check all that apply): Patient Departure All imaging exams completed and their final reports reviewed: No Studies - Discharge Plan Condition: Stable Disposition: HOME Prescriptions: Ondansetron ODT TAB* [Zofran 4 MG Odt TAB*] 4 mg PO Q6H PRN #10 tab.odt PRN Reason: Nausea Patient Education Materials: Dehydration (ED), Acute Nausea and Vomiting (ED) Forms: *School Release Referrals: Remington Forte [Primary Care Provider] - Additional Instructions: FOLLOW UP WITH YOUR DOCTOR IF NOT COMPLETELY IMPROVED. GO TO THE EMERGENCY DEPARTMENT FOR ANY WORSENING OF YOUR CONDITION; PAIN, DEHYDRATION, YOU FEEL ILL OR QUESTIONS OR CONCERNS. - Billing Disposition and Condition Condition: STABLE Disposition: Home
[2018-04-25 14:14] LABS: Influenza A Molecular NEGATIVE (Negative); Influenza B Molecular NEGATIVE (Negative)
[2018-04-25] MEDS ORDERED: Acetaminophen TAB* 325 MG PO ONE (14:30)
== END 2018-04-25 15:25 | disposition home or self-care (01) ==
LOC: UCCORT 13:17
DX: R11.2 Nausea with vomiting, unspecified (principal); E86.0 Dehydration; Z91.030 Bee allergy status; Z87.891 Personal history of nicotine dependence
CPT/HCPCS: 99212; A9270-GY; G0463

== ENCOUNTER 2018-06-13 15:24 | Emergency (ER) | payer BC ==
--- OUTSIDE RECORDS SUMMARY | 2018-06-13 15:56 | XMS REPORT | Continuity of Care Document ---
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 Payers Date Identification Numbers Payment Provider Subscriber Effective: 2014 Policy Number: [id number] [facility] Commercial Meena Ansari PayID: [id number] [address] [address] [place] [address] Advance Directives Description No Information Available Problems Active Problems Provider Date Generalized anxiety disorder Catrachita Gan MD Onset: 10/27/2014 Opioid dependence in remission Catrachita Gan MD Onset: 10/27/2014 Family History Date Family Member(s) Observation Comments Father Alcoholism Social History Type Date Description Comments Sex Unknown 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 going to [employer] Tobacco Use Start: Unknown Patient is a current smoker, smokes every day Allergies, Adverse Reactions, Alerts Description No Known Drug Allergies Medications Active Medications SIG Qnty Indications Ordering Date Provider Sublocade inject subcutaneous .500ml F11.288 Catrachita Gan 04/13/2018 every month MD Yara 100mg/0.5ML Soln Prefill Syringe Peg 3350 1 capful qd 714gm F31.9 Catrachita Gan 12/30/2016 Powder MD Yara Docusate Sodium 1 by mouth every day 30caps F31.9 Catrachita Gan 2016 MD Yara 100mg Capsules Narcan as needed intranasal 2units F31.9 Catrachita Gan 09/13/2016 4mg/0.1ML for emergency MD Yara Liquid overdose only Vitamin D 1 by mouth every day 268.9 Catrachita Gan 04/29/2014 2000Unit MD Yara Capsules Divalproex Sodium 2 qd F31.9 Unknown ER 500mg Tablets ER 24HR Quetiapine Fumarate take one tablet by F31.9 Unknown mouth at bedtime 100mg Tablets [place] Carbonate F31.9 Unknown 300mg Capsules History Medications Sublocade 300 mg sc [facility] 1.500ml [facility].288 [facility]/1.5ML mos Catrachita Livingston MD 04/13/2018 Soln Prefill Syringe Buprenorphine 1 sl every day 7units F11.288 [facility] 10/23[facility]2017 - Hydrochloride/Naloxo holli: [id number] Catrachita Livingston MD 10/23/2017 ne Hydrochloride 8-2mg Film Suboxone 1 sl every day 8units F11.288 [facility], 10/23/2017 - 8-2mg Film holli: [id number] Catrachita Livingston MD 03/16/2018 [facility] [place] [address], 05/19/2017 - class 4/5 paige/t Catrachita Livingston MD 06/06/2017 medical reasons School Note pt was seen at the [facility], 04/07/2017 - medical center Catrachita Livingston MD 05/19/2017 today Amphetamine-Dextroam 1 by mouth bid F90.0 [facility], 04/07[facility]2017 - sameermine m-fr per psyche Catrachita Livingston MD 06/06/2017 20mg Tablets School Note please excuse from [facility], 03/30/2017 - class today paige/maria m Livingston MD 04/07/2017 medical reasons School Note [facility], 12/23/2016 - class 11/8 paige/maria m Livingston MD 03/10/2017 medical reasons Amphetamine-Dextroam per psyche prn use F90.0 [facility], 10/04/2016 - edi Livingston MD 04/07/2017 10mg Tablets Suboxone 1 sl every day 30units [facility], 09/13/2016 - 4-1mg Film holli:[id number] Catrachita Livingston MD 10/23/2017 Divalproex Sodium ER 2 qd F40.11 [facility], 09/13/2016 - Catrachita Livingston MD 06/06/2017 500mg Tablets ER 24HR Escitalopram Oxalate 1 by mouth every F41.1 [facility], 04/29/2016 - day Catrachita Livingston MD 07/13/2016 10mg Tablets School Note plz excuse from F31.9 [facility], 04/08[facility]2016 - class today and Catrachita Livingston MD 04/29/201604/07 School Note pt had MD appt F31.9 [facility], 01/22/2016 - today Catrachita Livingston MD 04/08/2016 Suboxone 1 sl every day 30units F31.9 [facility], 01/22/2016 - 8-2mg Film holli: [id number] Catrachita Livingston MD 09/13/2016 School Note pt missed class on [facility], 01/21/2016 - 01/13 d/t medical Catrachita Livingston MD 01/22/2016 reasons Suboxone 1 sl qd 30units F31.9 [facility], 12/21/2015 - 4-1mg Film holli:[id number] Catrachita Livingston MD 01/22/2016 Clonidine HCL 1 by mouth three a 30tabs F31.9 [facility], 07/27/2015 - 0.1mg day as needed Catrachita Livingston MD 11/24/2015 Tablets anxiety, tremors Hydroxyzine HCL 1 by mouth three 30tabs F31.9 [facility], 07/27/2015 - 25mg times a day as Catrachita Livingston MD 11/24/2015 Tablets needed anxiety/sleep Adderall XR 1 po qd F90.0 [facility], 06/29/2015 - 10mg Caps Catrachita Livingston MD 09/13/2016 ER 24HR School Note plz [facility], 05/20/2015 - class on 05/13 for Catrachita Livingston MD 06/29/2015 medical reasons Divalproex Sodium ER F41.1 [facility], 02/27/2015 - Catrachita Livingston MD 04/29/2016 500mg Tablets ER 24HR Escitalopram Oxalate 1 by mouth every 90tabs F41.1 [facility], 10/27/2014 - day Catrachita Livingston MD 04/29/2016 20mg Tablets Suboxone 1 sl every day holli 30units F31.9 [facility], 08/21/2014 - 2-0.5mg Film [id number] Catrachita Livingston MD 12/21/2015 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 Catrachita Livingston MD 06/24/2014 ER 24HR Suboxone 1 sl every day 10units 304.03 [facility], 01/06/2014 - 8-2mg Film Catrachita Livingston MD 08/21/[address] excuse from 304.03 [facility], 01/06/2014 - class today Catrachita Livingston MD 06/24/[address] excuse from 304.03 [facility], 12/16/2013 - class 12/09, Catrachita Livingston MD 01/06/201412/10, 12/16 Suboxone 1 sl bid 32units 304.03 [facility], 12/16/2013 - 4-1mg Film Catrachita Livingston MD 01/06/2014 Lexapro 1 by mouth every 90tabs 300.02 [facility], 12/09/2013 - 10mg Tablets day Catrachita Livingston MD 09/01/2014 Vistaril 1 qd prn Anxiety 30caps [facility], 12/09/2013 - 25mg Catrachita Livingston MD 01/06/2014 Capsules Suboxone 1 sl twice a day 15units 304.03 [facility], 12/09/2013 - 8-2mg Film Catrachita Livingston MD 12/16/2013 School Note patient was seen [facility], 12/09/2013 - in our office Catrachita Livingston MD 12/16/2013 today, PT has been sick for the past 2 wks.from 11/25/13 to 12/09 Immunizations Description No Information Available Vital Signs Date Vital Result Comment 06/08/2018 3:31pm Weight 124.00 lb Heart Rate 100 /min BP Systolic 100 mmHg BP Diastolic 60 mmHg Height 69 inches 5'9" BMI (Body Mass Index) 18.3 kg/m2 05/11/2018 2:45pm Weight 125.00 lb Heart Rate 56 /min BP Systolic 90 mmHg BP Diastolic 60 mmHg Height 69 inches 5'9" BMI (Body Mass Index) 18.5 kg/m2 04/13/2018 3:30pm Weight 129.00 lb Heart Rate [...] <50 ng/mL CBC With Auto Diff 01/22/2016 [facility] WBC 4.4 K/uL 4.1-11.0 RBC 4.95 M/uL [...] 06/24/2014 [facility] Amphetamines,Urine NEGATIVE (Neg) Urine -RL [id number] Barbiturates,Urine NEGATIVE FOQDCJ467 (Neg) Benzodiazepine,Urine NEGATIVE IQCOJK425 (Neg) Cannabinoids,Urine POSITIVE RANAAJ03 (Neg) 10 Cocaine,Urine NEGATIVE GVHQVC956 (Neg) Opiates,Urine NEGATIVE OEXIZK658 (Neg) Phencyclidine,Urine NEGATIVE EXOLWS31 (Neg) Please Note: THESE ARE SCREEN <SEE NOTE> 11 Buprenorphine & Metabolite 12/16/2013 [facility] Buprenorphine Ur 5 ng/mL 12, 13 -Urine Norbuprenorphine Ur 244 ng/mL Buprenorphine Glucu >1000 14 Norbupr Glucuronide 322 15 Naloxone,Urine <100 ng/mL 16 Drugs Of Abuse 12/16/2013 [facility] Amphetamines,Urine NEGATIVE ZNAPQM012 (Neg) Urine -RL Barbiturates,Urine NEGATIVE YOPRBT064 (Neg) Benzodiazepine,Urine NEGATIVE HWFMQA091 (Neg) Cannabinoids,Urine POSITIVE WUZUSH98 (Neg) 17 Cocaine,Urine NEGATIVE DHLCQU633 (Neg) Opiates,Urine NEGATIVE XKPLMJ361 (Neg) Phencyclidine,Urine NEGATIVE ZCCCIK75 (Neg) Please Note: THESE ARE SCREEN <SEE [...] Drugs Of Abuse 12/09/2013 [facility] Amphetamines,Urine NEGATIVE VQYHDM173 (Neg) Urine -RL Barbiturates,Urine NEGATIVE EURLAJ415 (Neg) Benzodiazepine,Urine NEGATIVE FQOJYR008 (Neg) Cannabinoids,Urine POSITIVE KZYTUO10 (Neg) 26 Cocaine,Urine NEGATIVE NMWKJV021 (Neg) Opiates,Urine POSITIVE SIVWRQ660 (Neg) 27 Phencyclidine,Urine NEGATIVE BPPMCD32 (Neg) Please Note: THESE ARE SCREEN <SEE [...] laboratory. Test developed and characteristics determined by [facility]. See Compliance Statement B: [employer] 6 Unit: ng/mL Consistent with use of a buprenorphine-containing drug. Glucuronide concentrations are semi-quantitative. 7 Unit: ng/mL 8 Performed by [facility], [address] [place] [address] www.[employer] [employer] [facility], Moe Jones MD, Lab. Director Unless otherwise specified, testing performed by [facility], [place] [address] 9 INTERPRETIVE INFORMATION: Drug Confirmation, Cannabinoids, Urine 1. Drugs covered: 1-ddcixlu-TKL. 2. Methodology: Liquid Chromatography-Tandem Mass Spectrometry. 3. Positive cutoff: 5 ng/mL. 4. For medical purposes only; not valid for forensic use. 5. The drug analyte detected in this assay, 9-carboxy THC, is a metabolite of vmhqr-9-xtxbjgvnvgnxltrivmsn (THC). Detection of 9-carboxy THC suggests use [...] at least one week apart. Performed by [facility], [address] [place] [id number] www.[employer] [facility], Moe Jones MD, Lab. Director Unless otherwise specified, testing [place] [address] 10 SPECIMEN HAS BEEN SENT FOR CONFIRMATION. 11 THESE ARE SCREENING IMMUNOASSAY TESTS THAT ARE REPORTED POSITIVE WHEN THE RESULTS EXCEED THE THRESHOLD (CUTOFF) INDICATED. A LIST OF POTENTIAL INTERFERENCES FOR EACH METHOD CAN BE MADE AVAILABLE UPON REQUEST. A CONFIRMATORY ANALYSIS IS ORDERED ON ALL DRUGS SCREENING POSITIVE BY THIS METHOD. PERFORMED AT [address] [place] [address] Unless otherwise specified, testing performed by [email or web address] [place] [id number] 12 This sample is drawn by:. 13 [...] laboratory. Test developed and characteristics determined by [facility]. See Compliance Statement B: [employer] [facility]/CS 14 Unit: ng/mL Consistent with use of a buprenorphine-containing drug. Glucuronide concentrations are semi-quantitative. 15 Unit: ng/mL 16 Performed by [facility], [address] [place] [address] www.[employer] [employer] [facility], Moe Jones MD, Lab. Director Unless otherwise specified, testing performed by [facility] [address] [place] [address] 17 SPECIMEN HAS BEEN SENT FOR CONFIRMATION. 18 THESE ARE SCREENING IMMUNOASSAY TESTS THAT ARE REPORTED POSITIVE WHEN THE RESULTS EXCEED THE THRESHOLD (CUTOFF) INDICATED. A LIST OF POTENTIAL INTERFERENCES FOR EACH METHOD CAN BE MADE AVAILABLE UPON REQUEST. A CONFIRMATORY ANALYSIS IS ORDERED ON ALL DRUGS SCREENING POSITIVE BY THIS METHOD. PERFORMED AT [address] [place] [address] Unless otherwise specified, testing performed by [facility] [address] [place] [address] 19 NOT INFECTED WITH HCV, UNLESS RECENT INFECTION IS SUSPECTED OR OTHER EVIDENCE EXISTS TO INDICATE HCV INFECTION. Unless otherwise specified, testing performed by [facility] [address] [place] [address] 20 INTERPRETIVE INFORMATION: Drug Confirmation, Cannabinoids, Urine 1. Drugs covered: 8-jcrsqgu-NIO. 2. Methodology: Liquid Chromatography-Tandem Mass Spectrometry. 3. Positive cutoff: 5 ng/mL. 4. For medical purposes only; not valid for forensic use. 5. The drug analyte detected in this assay, 9-carboxy THC, is a metabolite of lqvig-2-ijwgtypacflifsklynih (THC). Detection of 9-carboxy THC suggests use [...] at least one week apart. Performed by [facility], [address] [place] [address] www.[employer], Moe Jones MD, Lab. Director Unless otherwise specified, testing [place] [address] 21 Fastin hours 22 INTERPRETIVE INFORMATION: Buprenorphine [...] laboratory. Test developed and characteristics determined by [facility]. See Compliance Statement B: [facility]/ 23 Unit: ng/mL 24 Unit: ng/mL 25 Performed by [facility], [address] [place] [id number] www.[facility], Moe Jones MD, Lab. Director Unless otherwise specified, testing performed [place] [address] 26 SPECIMEN HAS BEEN SENT FOR CONFIRMATION. 27 SPECIMEN HAS BEEN SENT FOR CONFIRMATION. 28 THESE ARE SCREENING IMMUNOASSAY TESTS THAT ARE REPORTED POSITIVE WHEN THE RESULTS EXCEED THE THRESHOLD (CUTOFF) INDICATED. A LIST OF POTENTIAL INTERFERENCES FOR EACH METHOD CAN BE MADE AVAILABLE UPON REQUEST. A CONFIRMATORY ANALYSIS IS ORDERED ON ALL DRUGS SCREENING POSITIVE BY THIS METHOD. PERFORMED AT [address] [place] [address] Unless otherwise specified, testing [place] [address] 29 Positive INTERPRETIVE INFORMATION: Opiates - Confirmation/Quantitation [...] Unit: ng/mL 33 Unit: ng/mL Performed by [facility], [address] [facility] [id number] www.[employer] [facility], Moe Jones MD, Lab. Director Unless otherwise specified, testing performed by [facility] [address] [place] [address] 34 INTERPRETIVE INFORMATION: Drug Confirmation, Cannabinoids, Urine 1. Drugs covered: 6-iocqkae-XYW. 2. Methodology: Liquid Chromatography-Tandem Mass Spectrometry. 3. Positive cutoff: 5 ng/mL. 4. For medical purposes only; not valid for forensic use. 5. The drug analyte detected in this assay, 9-carboxy THC, is a metabolite of wzzcu-0-gjirqhxxmpnlwliljvyj (THC). Detection of 9-carboxy THC suggests use [...] at least one week apart. Performed by [facility], [address] [facility] [id number] www.[employer] [facility], Moe Jones MD, Lab. Director Unless otherwise specified, testing performed by [facility], [address] [address] Procedures Description No Information Available Encounters Type Date Location Provider Dx Diagnosis Office Visit 05/11/2018 Catrachita Elizabeth R63.4 Abnormal weight loss 2:30p MD Yara F11.288 Opioid dependence with other opioid-induced disorder F31.9 Bipolar disorder, unspecified Z68.1 Body mass index (BMI) 19.9 or less, adult Office Visit 04/13/2018 3:00p Catrachita Elizabeth F11.288 Opioid dependence with MD Yara other opioid-induced disorder F31.9 Bipolar disorder, unspecified Z68.1 Body mass index (BMI) 19.9 or less, adult Office Visit 03/16/2018 2:15p Catrachita Elizabeth F11.288 Opioid dependence with MD [...] 3:30p Catrachita Elizabeth F11.21 Opioid dependence, in MD Yara remission F41.1 Generalized anxiety disorder F90.0 Attn-defct hyperactivity disorder, predom inattentive type R10.11 RIGHT upper quadrant pain F31.9 Bipolar disorder, unspecified Z68.1 Body mass index (BMI) 19.9 or less, adult Office Visit 04/07/2017 3:00p Catrachita Elizabeth F11.21 Opioid dependence, in MD Yara remission F41.1 Generalized anxiety disorder F90.0 Attn-defct hyperactivity disorder, predom inattentive type Office Visit 03/10/2017 3:45p Ernestine Elvia, Catrachita F11.21 Opioid dependence, in M,MD remission Office Visit 12/30/2016 3:00p Ernestine Macachantelle, Catrachita F11.21 Opioid dependence, in M,MD remission F41.1 Generalized anxiety disorder F90.0 Attn-defct hyperactivity disorder, predom inattentive type Office Visit 11/11/2016 3:30p Ernestine Elvia, Catrachita F11.21 Opioid dependence, in M,MD remission F41.1 Generalized anxiety disorder Office Visit 10/28/2016 3:00p Ernestine Macachantelle, Catrachita F11.21 Opioid dependence, in M,MD remission F41.1 Generalized anxiety disorder F90.0 Attn-defct hyperactivity disorder, predom inattentive type Office Visit 10/04/2016 2:45p Ernestine Elvia, Catrachita F11.21 Opioid dependence, in M,MD remission F41.1 Generalized anxiety disorder F90.0 Attn-defct hyperactivity disorder, predom inattentive type Office Visit 09/13/2016 1:00p Ernestine Gan, Catrachita F11.21 Opioid dependence, in M,MD remission F41.1 Generalized anxiety disorder F90.0 Attn-defct hyperactivity disorder, predom inattentive type F40.11 Social phobia, generalized Office Visit 07/13/2016 11:00a Ernestine Gan, Catrachita F11.21 Opioid dependence, in M,MD remission F41.1 Generalized anxiety disorder Office Visit 04/29/2016 3:45p Ernestine Gan, Catrachita F11.21 Opioid dependence, in M,MD remission F41.1 Generalized anxiety disorder Office Visit 03/02/2016 11:45a Ernestine Gan, Catrachita F11.21 Opioid dependence, in M,MD remission F41.1 Generalized anxiety disorder D72.1 Eosinophilia Office Visit 01/22/2016 2:45p Ernestine Gan, Catrachita F11.21 Opioid dependence, in M,MD remission F43.0 Acute stress reaction F41.1 Generalized anxiety disorder R53.83 Other fatigue Office Visit 11/24/2015 4:00p Ernestine Elvia, Catrachita F11.21 Opioid dependence, in M,MD remission Office Visit 09/25/2015 2:30p Ernestine Macadam, Catrachita F11.21 Opioid dependence, in M,MD remission F41.1 Generalized anxiety disorder F90.0 Attn-defct hyperactivity disorder, predom inattentive type S60.051A Contusion of RIGHT little finger w/o damage to nail, init Office Visit 07/27/2015 2:45p Georgiana Elizabethher F11.21 Opioid dependence, in M,MD remission F41.1 Generalized anxiety disorder F90.0 Attn-defct hyperactivity disorder, predom inattentive type Office Visit 06/29/2015 2:00p Catrachita Elizabeth F11.21 Opioid dependence, in M,MD remission R11.2 [...] 10/27/2014 11:45a Catrachita Elizabeth 304.03 Drug Dependence MD Yara Opioid Type Remission 300.02 Anxiety Disorder Generalized Office Visit 09/01/2014 10:45a Catrachita Elizabeth 304.03 Drug Dependence MD Yara Opioid Type Remission 314.00 Attention Deficit Disorder W/O Mention Of Hyperactivity 300.02 Anxiety Disorder Generalized Office Visit 06/24/2014 11:30a Catrachita Elizabeth 304.03 Drug Dependence MD Yara Opioid Type Remission 314.00 Attention Deficit Disorder W/O Mention Of Hyperactivity Office Visit 04/29/2014 11:45a Catrachita Elizabeth 304.03 Drug Dependence MD Yara Opioid Type Remission 314.00 Attention Deficit Disorder W/O Mention Of Hyperactivity 300.02 Anxiety Disorder Generalized 268.9 Vitamin D Deficiency Unspec Office Visit 03/03/2014 11:45a Catrachita Elizabeth 304.03 Drug Dependence MD Yara Opioid Type Remission 300.02 Anxiety Disorder Generalized 314.00 Attention Deficit Disorder W/O Mention Of Hyperactivity Office Visit 01/06/2014 11:30a Catrachita Elizabeth 304.03 Drug Dependence MD Yara Opioid Type Remission 300.02 Anxiety Disorder Generalized Office Visit 12/16/2013 2:00p Catrachita Elizabeth 304.03 Drug Dependence MD Yara Opioid Type Remission 300.02 Anxiety Disorder Generalized V69.2 Sexual Behavior High Risk Office Visit 12/09/2013 1:45p Catrachita Elizabeth 304.01 Drug Dependence MD [facility] Opioid Type Continuous Plan of Treatment Future Appointment(s):07/02/2018 1:45 pm - Catrachita Gan MD at [facility]08 - Catrachita Gan MDF11.288 Opioid dependence with other opioid- induced muxjbrhwU91.9 Bipolar disorder, kflqfszntalI36.1 Body mass index (BMI) 19.9 or less, adult
[2018-06-13 16:37] VITALS: BP 102/64
--- NOTE | 2018-06-13 17:05 | ED ---
Upper Extremity Pain - HPI Summary HPI Summary: 27 yr old male with the complaint of right shoulder pain. 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 He did several shots with right arm and then swam 300meters. He developed pain in the upper scapula and the lateral shoulder. Onset yesterday after the events. Pain is moderate. He has limited overhead activity with the right arm. The patient also states he got an injection in the right lower abdomen by his doctor and not all the medicine went in deep enough. He has some ulceration in the area. No drainage. - History of Current Complaint Chief Complaint: UCUpperExtremity Stated Complaint: RIGHT SHOULDER/LACERATION CHEST Time Seen by Provider: 06/13/18 16:41 - Allergies/Home Medications Allergies/Adverse Reactions: Allergies Allergy/AdvReac Type Severity Reaction Status Date / Time bee venom protein (honey bee) Allergy Swelling Verified 06/13/18 16:37 PMH/Surg Hx/FS Hx/Imm Hx Endocrine/Hematology History: Denies: Hx Anticoagulant Therapy, Hx Diabetes, Hx Thyroid Disease Cardiovascular History: Denies: Hx Congestive Heart Failure, Hx Deep Vein Thrombosis, Hx Hypertension , Hx Myocardial Infarction, Hx Pacemaker/ICD Respiratory History: Reports: Hx Asthma Denies: Hx Chronic Obstructive Pulmonary Disease (COPD), Hx Lung Cancer, Hx Pneumonia, Hx Pulmonary Embolism GI History: Denies: Hx Gall Bladder Disease, Hx Gastrointestinal Bleed, Hx Ulcer, Hx Urosepsis History: Denies: Hx Kidney Stones, Hx Renal Disease Neurological History: Denies: Hx Dementia, Hx Migraine - He has not had a history of headaches before., Hx Seizures, Hx Transient Ischemic Attacks (TIA) Psychiatric History: Reports: Hx Depression Denies: Hx Anxiety, Hx Schizophrenia, Hx Bipolar Disorder - Surgical History Surgery Procedure, Year, and Place: wisdom teeth Infectious Disease History: No Infectious Disease History: Denies: Traveled Outside the [place] in Last 30 Days - Family History Known Family History: Positive: Diabetes, Respiratory Disease, Other - migraine Negative: Cardiac Disease, Hypertension, Seizure Disorder - Social History Alcohol Use: None Alcohol Amount: "none in 5 years" Substance Use Type: Reports: Marijuana Substance Use Comment - Amount & Last Used: several times a week Smoking Status (MU): Former Smoker Type: Cigarettes Amount Used/How Often: 5 CIGS PER DAY Length of Time of Smoking/Using Tobacco: 1/2 PPD x 6 Years Have You Smoked in the Last Year: Yes Review of Systems Constitutional: Negative Positive: Other - right shoulder pain All Other Systems Reviewed And Are Negative: Yes Physical Exam Triage Information Reviewed: Yes Vital Signs On Initial Exam: Initial Vitals Temp Pulse Resp BP Pulse Ox 98.5 F 63 16 102/64 99 06/13/18 16:33 06/13/18 16:33 06/13/18 16:33 06/13/18 16:33 06/13/18 16:33 Vital Signs Reviewed: Yes Appearance: Positive: Well-Appearing, No Pain Distress Skin: Positive: Warm, Skin Color Reflects Adequate Perfusion Head/Face: Positive: Normal Head/Face Inspection Eyes: Positive: EOMI, ANEESH ENT: Positive: Pharynx normal Respiratory/Lung Sounds: Positive: Clear to Auscultation Cardiovascular: Positive: RRR, Pulses are Symmetrical in both Upper and Lower Extremities Abdomen Description: Negative: Distended Musculoskeletal: Positive: Other - he has limited ROM to 90 degrees active on abduction of the right shoulder, and 110 degrees forward flexion right shoulder. There is some tenderness over the right supraspinatus muscle right shoulder. Neurological: Positive: Sensory/Motor Intact, Alert, Oriented to Person Place, Time, CN Intact II-III Psychiatric: Positive: Normal Diagnostics - Vital Signs Vital Signs Temp Pulse Resp BP Pulse Ox 06/13/18 16:33 98.5 F 63 16 102/64 99 - Laboratory Lab Statement: Any lab studies that have been ordered have been reviewed, and results considered in the medical decision making process. - Radiology right shoulder Radiology Interpretation Completed By: Radiologist - NAD Course/Dx - Course Course Of Treatment: 27 yr old with right shoulder pain. Likley supraspinatus tendon injury. Plan dc home. FU with ortho. His abdominal skin wound it was discussed to apply antibiotic ointment twice a day with a clean bandage, and follow up with his Primary doctor. - Diagnoses Provider Diagnoses: Abdominal wall skin ulcer, Injury of right rotator cuff Discharge - Sign-Out/Discharge Documenting (check all that apply): Patient Departure All imaging exams completed and their final reports reviewed: Yes - Discharge Plan Condition: Good Disposition: HOME Patient Education Materials: Acute Wound Care (ED), Rotator Cuff Injury (ED) Referrals: Remington Forte [Primary Care Provider] - 2 Days Vernon Durand MD [Medical Doctor] - 2 Days Additional Instructions: No sports, swimming, shot put etc until clear by orthopedics. apply antibiotic ointment with a clean dressing to your abdominal skin ulceration twice a day . See your primary doctor in follow up. - Billing Disposition and Condition Condition: GOOD Disposition: Home
== END 2018-06-13 17:29 | disposition home or self-care (01) ==
LOC: UCCORT 15:41
DX: S46.011A Strain of muscle(s) and tendon(s) of the rotator cuff of right shoulder, initial encounter (principal); L98.499 Non-pressure chronic ulcer of skin of other sites with unspecified severity; X50.1XXA Overexertion from prolonged static or awkward postures, initial encounter; Y93.59 Activity, other involving other sports and athletics played individually; Y92.328 Other athletic field as the place of occurrence of the external cause; J45.909 Unspecified asthma, uncomplicated; F32.9 Major depressive disorder, single episode, unspecified; F12.10 Cannabis abuse, uncomplicated; Z87.891 Personal history of nicotine dependence; Z91.030 Bee allergy status
CPT/HCPCS: 99211; G0463